=== PATIENT | female | born 1960 | race Caucasian/White ===

== ENCOUNTER 2016-07-15 10:38 | Inpatient (IN) | payer MEDICAID ==
[2016-07-15] MEDS ORDERED: MAGNESIUM HYDROXIDE 2,400 MG/10 ML CUP PO PRN (12:21)
[2016-07-15] MEDS ORDERED: ZIPRASIDONE 20 MG VIAL IM PRN (12:21)
[2016-07-15] MEDS ORDERED: MAG HYDROX/AL HYDROX/SIMETH 30 ML CUP PO PRN (12:21)
[2016-07-15 13:07] VITALS: BMI 19.1
[2016-07-15] MEDS ORDERED: NAPROXEN 250 MG TAB PO PRN (13:29)
[2016-07-15] MEDS ORDERED: GABAPENTIN 400 MG CAP PO SCH (16:00)
[2016-07-15] MEDS: PANTOPRAZOLE 40 MG TABLET PO SCH (21:33)
[2016-07-15] MEDS: traZODone HCL 50 MG TAB PO SCH (21:33)
[2016-07-16] MEDS: ARIPiprazole 2 MG TAB PO SCH (07:44)
[2016-07-16] MEDS: ASPIRIN 81 MG CHEW PO SCH (07:44)
[2016-07-16] MEDS: amLODIPine 10 MG TAB PO SCH (07:44)
[2016-07-16] MEDS: LORazepam 1 MG TAB PO PRN ×2 (07:45→20:49)
[2016-07-16] MEDS: LISINOPRIL 20 MG TAB PO SCH (07:45)
[2016-07-16] MEDS: ATORVASTATIN 10 MG TAB PO SCH (07:45)
[2016-07-16] MEDS: PANTOPRAZOLE 40 MG TABLET PO SCH ×2 (07:45→20:16)
[2016-07-16] MEDS: ACETAMINOPHEN TAB 325 MG TAB PO PRN ×3 (07:47→23:07)
[2016-07-16] MEDS ORDERED: VENLAFAXINE HCL ER 150 MG CAP PO SCH (09:00)
[2016-07-16] MEDS: GABAPENTIN 300 MG CAP PO SCH ×3 (10:15→20:16)
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
[2016-07-16] MEDS: oxyCODONE-APAP 5-325MG 1 EACH TAB PO PRN ×2 (12:51→18:29)
[2016-07-16] MEDS ORDERED: BACLOFEN 10 MG TAB PO PRN (13:40)
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
--- NOTE | 2016-07-16 17:49 | P.PN ---
Subjective SUBJECTIVE: Patient endorses :poor appetite ,feeling tired ,no motivation ,ruminating about her back pain and her migraine ,denies any suicidal ideation , endorses:high anxiety ,flashback ,poor memory ,hopeless and helpless feeling MENTAL STATUS EXAM: Patient is dressed up in her street clothing,less confused than yesterday ,less guarded ,no abnormal movement ,speech is non spontaneous ,tangential ,denies any psychotic features ,denies any suicidal or homicidal ideations ,her insight to her SA is impaired ASSESSMENT: Delirium reaction ,resolved ,Major depression,recurrent ,severe,PTSD PLAN:Increase Effexor to 225 mg ,continue rest of medications ,will arrange family meeting with for collateral information Objective - Vital Signs Vital signs: Vital Signs Temp 98.0 F 07/16/16 07:24 Pulse 89 07/16/16 08:33 Resp 16 07/16/16 08:33 BP 156/76 07/16/16 08:33 Pulse Ox Intake & Output 07/15/16 07/16/16 07/16/16 18:59 06:59 18:59 Weight 55.537 kg 55.537 kg
[2016-07-16] MEDS: traZODone HCL 50 MG TAB PO SCH (20:16)
[2016-07-17] MEDS: oxyCODONE-APAP 5-325MG 1 EACH TAB PO PRN ×4 (02:04→20:45)
[2016-07-17] MEDS: GABAPENTIN 300 MG CAP PO SCH (08:29)
[2016-07-17] MEDS: VENLAFAXINE HCL ER 75 MG CAP PO SCH (08:29)
[2016-07-17] MEDS: ASPIRIN 81 MG CHEW PO SCH (08:29)
[2016-07-17] MEDS: PANTOPRAZOLE 40 MG TABLET PO SCH ×2 (08:29→20:50)
[2016-07-17] MEDS: ATORVASTATIN 10 MG TAB PO SCH (08:29)
[2016-07-17] MEDS: amLODIPine 10 MG TAB PO SCH (08:29)
[2016-07-17] MEDS: LISINOPRIL 20 MG TAB PO SCH (08:29)
[2016-07-17] MEDS: ARIPiprazole 2 MG TAB PO SCH (08:29)
[2016-07-17] MEDS: LORazepam 1 MG TAB PO PRN (08:30)
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
[2016-07-17] MEDS: GABAPENTIN 400 MG CAP PO SCH ×2 (15:29→20:45)
[2016-07-17] MEDS: LORazepam 0.5 MG TAB PO PRN (15:29)
[2016-07-17] MEDS: traZODone HCL 50 MG TAB PO SCH (20:45)
[2016-07-18] MEDS: oxyCODONE-APAP 5-325MG 1 EACH TAB PO PRN ×4 (02:41→21:32)
[2016-07-18] MEDS: amLODIPine 10 MG TAB PO SCH (08:39)
[2016-07-18] MEDS: LISINOPRIL 20 MG TAB PO SCH (08:39)
[2016-07-18] MEDS: ATORVASTATIN 10 MG TAB PO SCH (08:39)
[2016-07-18] MEDS: ASPIRIN 81 MG CHEW PO SCH (08:39)
[2016-07-18] MEDS: GABAPENTIN 400 MG CAP PO SCH ×3 (08:39→21:29)
[2016-07-18] MEDS: ARIPiprazole 2 MG TAB PO SCH (08:39)
[2016-07-18] MEDS: PANTOPRAZOLE 40 MG TABLET PO SCH ×2 (08:40→21:29)
[2016-07-18] MEDS: VENLAFAXINE HCL ER 75 MG CAP PO SCH (08:41)
[2016-07-18] MEDS: LORazepam 0.5 MG TAB PO PRN ×2 (08:42→15:55)
--- NOTE | 2016-07-18 11:11 | P.PN ---
Progress Note - Text Interval history: Patient is seen in cross coverage today for Dr. Easley. She reports that she is feeling better. She states she overall has been sleeping well, not as good last night. She is eating some. She does not seem to voice any adverse psychotropic medication side effects. She does relate that the Ativan is not as effective at 0.5 mg. Mental status exam: She is alert and cooperative with the interview. Her affect does show some range. Her mood she describes is improved. She denies any thoughts of harm to self or others. There is no evidence of active psychosis. She denies any hallucinations or paranoid thoughts. There is no agitation currently. Plan: We'll maintain Effexor XR and Abilify as current. Patient requests a nicotine patch, smokes 1-1-1/2 packs per day. We'll start Habitrol patch 21 mg daily. Continue to cover this patient for Dr. Easley through the weekend.
[2016-07-18] MEDS: NICOTINE 21MG/24HR PATCH TRANSDERM SCH (13:38)
[2016-07-18] MEDS: ACETAMINOPHEN TAB 325 MG TAB PO PRN (18:49)
[2016-07-18] MEDS: traZODone HCL 50 MG TAB PO SCH (21:29)
[2016-07-19] MEDS: oxyCODONE-APAP 5-325MG 1 EACH TAB PO PRN ×4 (04:31→22:48)
[2016-07-19] MEDS: ARIPiprazole 2 MG TAB PO SCH (08:43)
[2016-07-19] MEDS: amLODIPine 10 MG TAB PO SCH (08:43)
[2016-07-19] MEDS: ASPIRIN 81 MG CHEW PO SCH (08:43)
[2016-07-19] MEDS: ACETAMINOPHEN TAB 325 MG TAB PO PRN ×2 (08:43→13:25)
[2016-07-19] MEDS: ATORVASTATIN 10 MG TAB PO SCH (08:44)
[2016-07-19] MEDS: NICOTINE 21MG/24HR PATCH TRANSDERM SCH (08:44)
[2016-07-19] MEDS: VENLAFAXINE HCL ER 75 MG CAP PO SCH (08:44)
[2016-07-19] MEDS: LISINOPRIL 20 MG TAB PO SCH (08:44)
[2016-07-19] MEDS: PANTOPRAZOLE 40 MG TABLET PO SCH ×2 (08:44→20:07)
[2016-07-19] MEDS: GABAPENTIN 400 MG CAP PO SCH ×3 (08:44→20:07)
[2016-07-19 08:48] VITALS: RESP 18
--- NOTE | 2016-07-19 15:15 | P.PN ---
Progress Note - Text Interval history: Patient is seen in cross coverage today for Dr. Easley. She reports that she is feeling better. She does state that it took her time to fall asleep last night. She says she is eating well. She does not seem to voice any adverse psychotropic medication side effects. She has a family meeting scheduled for tomorrow she reports. Mental status exam: She is alert and cooperative with the interview. Her speech is fluent, not rapid or pressured. Her affect does show range. Her mood is improved. She denies any thoughts of harm to self or others. She denies any hallucinations. She does not make any catrachito delusional statements. She does not show any agitation. Plan: We'll maintain current psychotropic medications. Dr. Easley to resume care this patient starting tomorrow.
[2016-07-19] MEDS: LORazepam 0.5 MG TAB PO PRN (15:54)
[2016-07-19] MEDS: traZODone HCL 50 MG TAB PO SCH (20:07)
[2016-07-20] MEDS: LORazepam 0.5 MG TAB PO PRN ×2 (03:14→12:09)
[2016-07-20] MEDS: ACETAMINOPHEN TAB 325 MG TAB PO PRN ×2 (03:14→08:51)
[2016-07-20 04:25] VITALS: TEMP 97.6
[2016-07-20] MEDS: oxyCODONE-APAP 5-325MG 1 EACH TAB PO PRN ×2 (05:00→10:32)
[2016-07-20] MEDS: ARIPiprazole 2 MG TAB PO SCH (08:50)
[2016-07-20] MEDS: NICOTINE 21MG/24HR PATCH TRANSDERM SCH (08:50)
[2016-07-20] MEDS: amLODIPine 10 MG TAB PO SCH (08:50)
[2016-07-20] MEDS: ASPIRIN 81 MG CHEW PO SCH (08:50)
[2016-07-20] MEDS: ATORVASTATIN 10 MG TAB PO SCH (08:51)
[2016-07-20] MEDS: LISINOPRIL 20 MG TAB PO SCH (08:51)
[2016-07-20] MEDS: GABAPENTIN 400 MG CAP PO SCH (08:51)
[2016-07-20] MEDS: VENLAFAXINE HCL ER 75 MG CAP PO SCH (08:53)
[2016-07-20] MEDS: PANTOPRAZOLE 40 MG TABLET PO SCH (08:54)
[2016-07-20 12:10] VITALS: BP 145/66; PULSE 69
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
== END 2016-07-20 14:13 | disposition home or self-care (01) | DRG 880 ==
LOC: 3MHU 11:43
PROVIDERS: ADMIT Psychiatry & Neurology Psychiatry; ATTEND Psychiatry & Neurology Psychiatry
DX: F05 Delirium due to known physiological condition (principal); F33.2 Major depressive disorder, recurrent severe without psychotic features; G62.9 Polyneuropathy, unspecified; I65.23 Occlusion and stenosis of bilateral carotid arteries; I10 Essential (primary) hypertension; F44.4 Conversion disorder with motor symptom or deficit; J44.9 Chronic obstructive pulmonary disease, unspecified; F43.10 Post-traumatic stress disorder, unspecified; G89.4 Chronic pain syndrome; K58.9 Irritable bowel syndrome, unspecified; E78.5 Hyperlipidemia, unspecified; K21.9 Gastro-esophageal reflux disease without esophagitis; G43.909 Migraine, unspecified, not intractable, without status migrainosus; Z91.5 Personal history of self-harm; F17.200 Nicotine dependence, unspecified, uncomplicated; F11.21 Opioid dependence, in remission; M54.9 Dorsalgia, unspecified; Z90.710 Acquired absence of both cervix and uterus; Z90.49 Acquired absence of other specified parts of digestive tract; Z59.9 Problem related to housing and economic circumstances, unspecified; Z91.410 Personal history of adult physical and sexual abuse; Z91.411 Personal history of adult psychological abuse; Z91.83 Wandering in diseases classified elsewhere; Z81.8 Family history of other mental and behavioral disorders; Z79.82 Long term (current) use of aspirin; Z79.1 Long term (current) use of non-steroidal anti-inflammatories (NSAID); Z79.899 Other long term (current) drug therapy

== ENCOUNTER 2018-02-15 09:39 | Inpatient (IN) | payer OTHER ==
--- NOTE | 2018-02-15 10:02 | ED ---
General Adult HPI - General Chief complaint: Extremity Problem,Nontraumatic Stated complaint: cough/rib pain Time Seen by Provider: 02/15/18 09:52 Source: patient, RN notes reviewed Mode of arrival: ambulatory Limitations: no limitations - History of Present Illness Initial comments: This is a 57-year-old female presents emergency Department chief complaint of cough, left-sided rib pain. Patient states that she was released last from [facility] for pneumonia. She states that she's not one week in the hospital. She states she still has a slight cough. She did admit that she came home and had a mechanical fall striking the left side of her ribs. She has mild discomfort. Patient does have underlying COPD, continues to smoke. Patient denies any head injury no loss conscious denies any neck or back pain. - Related Data Home Medications Medication Instructions Recorded Confirmed Aspirin EC [Ecotrin Low Dose] 81 mg PO DAILY 07/15/16 02/15/18 Lisinopril [Zestril] 20 mg PO DAILY 07/15/16 02/15/18 Naproxen 500 mg PO BID PRN 07/15/16 02/15/18 Venlafaxine HCl [Effexor XR] 225 mg pe PO DAILY 07/15/16 02/15/18 amLODIPine [Norvasc] 10 mg PO DAILY 07/15/16 02/15/18 traZODone HCL 150 mg PO HS 07/15/16 02/15/18 Albuterol Inhaler [Ventolin Hfa 1 - 2 puff INHALATION RT-Q6H PRN 02/15/18 Inhaler] Atenolol [Tenormin] 25 mg PO BID 02/15/18 02/15/18 Atorvastatin [Lipitor] 20 mg PO HS 02/15/18 02/15/18 Cetirizine HCl [Zyrtec] 10 mg PO DAILY 02/15/18 02/15/18 Clopidogrel Bisulfate [Plavix] 75 mg PO DAILY 02/15/18 02/15/18 Ergocalciferol [Vitamin D2] 50,000 unit PO TU 02/15/18 02/15/18 Magnesium Oxide [Mag-Ox] 400 mg PO DAILY 02/15/18 02/15/18 Allergies Allergy/AdvReac Type Severity Reaction Status Date / Time ketorolac [From Toradol] Allergy Unknown Verified 02/15/18 09:55 sulfadiazine Allergy Unknown Verified 02/15/18 09:55 mesalamine [From Asacol] AdvReac Swelling Verified 02/15/18 09:55 Review of Systems ROS Statement: Those systems with pertinent positive or pertinent negative responses have been documented in the HPI. ROS Other: All systems not noted in ROS Statement are negative. Past Medical History Past Medical History: GERD/Reflux, Hyperlipidemia, Hypertension, Pneumonia Additional Past Medical History / Comment(s): Neuropathy, migraine headaches, chronic back pain, unspecified movement disorder History of Any Multi-Drug Resistant Organisms: None Reported Past Surgical History: Section, Heart Catheterization With Stent, Hysterectomy Additional Past Surgical History / Comment(s): 2 C-sections, partial hysterectomy, salpingo-oophorectomy, exploratory laparotomies for infertility. Stent placed 12/31/17 Past Psychological History: Anxiety, Depression, PTSD Smoking Status: Current every day smoker Past Alcohol Use History: None Reported Past Drug Use History: None Reported General Exam Limitations: no limitations General appearance: alert, in no apparent distress Head exam: Present: atraumatic, normocephalic, normal inspection Neck exam: Present: normal inspection, full ROM. Absent: tenderness, meningismus, lymphadenopathy Respiratory exam: Present: normal lung sounds bilaterally, chest wall tenderness (Moderate left lateral posterior). Absent: respiratory distress, wheezes, rales, rhonchi, stridor Cardiovascular Exam: Present: regular rate, normal rhythm, normal heart sounds. Absent: systolic murmur, diastolic murmur, rubs, gallop, clicks Back exam: Absent: CVA tenderness (R), CVA tenderness (L) Skin exam: Present: warm, dry, intact, normal color. Absent: rash Course Vital Signs 02/15/18 09:44 Temperature 98.3 F Pulse Rate 79 Respiratory 18 Rate Blood Pressure 109/69 O2 Sat by Pulse 96 Oximetry EKG Findings - EKG Comments: EKG Findings:: EKG performed at 10:49 normal sinus rhythm with a rate of 73 AK 182 QRS 88 QT/QTc 444/489 Medical Decision Making - Lab Data Result diagrams: 02/15/18 11:00 02/15/18 11:00 Lab Results 02/15/18 02/15/18 02/15/18 Range/Units 11:00 11:00 11:00 WBC 17.7 H (3.8-10.6) k/uL RBC 3.09 L (3.80-5.40) m/uL Hgb 9.0 L (11.4-16.0) gm/dL Hct 29.1 L (34.0-46.0) % MCV 94.3 (80.0-100.0) fL MCH 29.3 (25.0-35.0) pg MCHC 31.0 (31.0-37.0) g/dL RDW 16.9 H (11.5-15.5) % Plt Count 659 H (150-450) k/uL Neutrophils % 87 % Lymphocytes % 6 % Monocytes % 5 % Eosinophils % 1 % Basophils % 0 % Neutrophils # 15.5 H (1.3-7.7) k/uL Lymphocytes # 1.0 (1.0-4.8) k/uL Monocytes # 0.8 (0-1.0) k/uL Eosinophils # 0.1 (0-0.7) k/uL Basophils # 0.0 (0-0.2) k/uL Hypochromasia Moderate Anisocytosis Slight PT 10.9 (9.0-12.0) sec INR 1.1 (<1.2) APTT 25.0 (22.0-30.0) sec Sodium 137 (137-145) mmol/L Potassium 4.0 (3.5-5.1) mmol/L Chloride 103 (98-107) mmol/L Carbon Dioxide 24 (22-30) mmol/L Anion Gap 10 mmol/L BUN 11 (7-17) mg/dL Creatinine 0.40 L (0.52-1.04) mg/dL Est GFR (CKD-EPI)AfAm >90 (>60 ml/min/1.73 sqM) Est GFR (CKD-EPI)NonAf >90 (>60 ml/min/1.73 sqM) Glucose 112 H (74-99) mg/dL Plasma Lactic Acid Kraig (0.7-2.0) mmol/L Calcium 8.9 (8.4-10.2) mg/dL Total Bilirubin 0.4 (0.2-1.3) mg/dL AST 23 (14-36) U/L ALT 19 (9-52) U/L Alkaline Phosphatase 104 (38-126) U/L Troponin I (0.000-0.034) ng/mL Total Protein 6.3 (6.3-8.2) g/dL Albumin 2.8 L (3.5-5.0) g/dL 02/15/18 02/15/18 Range/Units 11:00 11:00 WBC (3.8-10.6) k/uL RBC (3.80-5.40) m/uL Hgb (11.4-16.0) gm/dL Hct (34.0-46.0) % MCV (80.0-100.0) fL MCH (25.0-35.0) pg MCHC (31.0-37.0) g/dL RDW (11.5-15.5) % Plt Count (150-450) k/uL Neutrophils % % Lymphocytes % % Monocytes % % Eosinophils % % Basophils % % Neutrophils # (1.3-7.7) k/uL Lymphocytes # (1.0-4.8) k/uL Monocytes # (0-1.0) k/uL Eosinophils # (0-0.7) k/uL Basophils # (0-0.2) k/uL Hypochromasia Anisocytosis PT (9.0-12.0) sec INR (<1.2) APTT (22.0-30.0) sec Sodium (137-145) mmol/L Potassium (3.5-5.1) mmol/L Chloride (98-107) mmol/L Carbon Dioxide (22-30) mmol/L Anion Gap mmol/L BUN (7-17) mg/dL Creatinine (0.52-1.04) mg/dL Est GFR (CKD-EPI)AfAm (>60 ml/min/1.73 sqM) Est GFR (CKD-EPI)NonAf (>60 ml/min/1.73 sqM) Glucose (74-99) mg/dL Plasma Lactic Acid Kraig 1.4 (0.7-2.0) mmol/L Calcium (8.4-10.2) mg/dL Total Bilirubin (0.2-1.3) mg/dL AST (14-36) U/L ALT (9-52) U/L Alkaline Phosphatase (38-126) U/L Troponin I <0.012 (0.000-0.034) ng/mL Total Protein (6.3-8.2) g/dL Albumin (3.5-5.0) g/dL Disposition Clinical Impression: Pneumonia, Anemia, Lymphadenopathy, mediastinal Disposition: ADMITTED IP TO THIS HOSP Condition: Fair Referrals: Clayton Yang MD [Primary Care Provider] - 1-2 days
--- NOTE | 2018-02-15 10:44 | XR ---
EXAMINATION TYPE: PA chest and left rib series (5 views) DATE OF EXAM: 02/15/2018 Comparison: None Clinical History: 57-year-old female with left-sided rib pain from fall, Pain Findings: Focal opacity at the left base extending up to the mid lung level. Mild left apical pleural parenchym al scarring. Right lung and pleural space appear clear. No displaced left rib fracture or discrete ri b erosions are seen. Heart normal size. Impression: Focal opacity at the left base extending up to the midlung level. Findings may represent a moderate-s ized pleural effusion. Underlying atelectasis, consolidation, or mass are also possible. No displaced left rib fracture seen.
[2018-02-15] MEDS ORDERED: HYDROcodone/APAP 5-325MG 1 EACH TAB PO STA (11:14)
[2018-02-15 11:19] LABS: Anisocytosis Slight; Basophils % (A) 0 %; Eosinophils # (A) 0.1 k/uL (0-0.7); Eosinophils % (A) 1 %; HCT 29.1 % (34.0-46.0); Hypochromasia Moderate; Lymphocytes % (A) 6 %; MCH 29.3 pg (25.0-35.0); MCV 94.3 fL (80.0-100.0); Mean Platelet Volume 6.9; Monocytes # (A) 0.8 k/uL (0-1.0); Monocytes % (A) 5 %; Neutrophils # (A) 15.5 k/uL (1.3-7.7); Neutrophils % (A) 87 %; Platelet Count 659 k/uL (150-450); RBC 3.09 m/uL (3.80-5.40); RDW 16.9 % (11.5-15.5); WBC 17.7 k/uL (3.8-10.6)
[2018-02-15 11:26] LABS: INR 1.1 (<1.2); Prothrombin Time 10.9 sec (9.0-12.0)
[2018-02-15 11:30] LABS: ALT 19 U/L (9-52); AST 23 U/L (14-36); Albumin 2.8 g/dL (3.5-5.0); Alkaline Phosphatase 104 U/L (38-126); Anion Gap 10 mmol/L; Blood Urea Nitrogen 11 mg/dL (7-17); Calcium 8.9 mg/dL (8.4-10.2); Carbon Dioxide 24 mmol/L (22-30); Chloride 103 mmol/L (98-107); Glucose 112 mg/dL (74-99); Sodium 137 mmol/L (137-145); Total Bilirubin 0.4 mg/dL (0.2-1.3); Total Protein 6.3 g/dL (6.3-8.2)
--- NOTE | 2018-02-15 12:22 | CT ---
CT CHEST FOR PULMONARY EMBOLISM. EXAMINATION TYPE: CT chest angio for PE DATE OF EXAM: 02/15/2018 INDICATION: SOB CT DLP: 330 mGycm, Automated exposure control for dose reduction was used. CONTRAST: Patient injected with 100 mL of Isovue 370. COMPARISON: None TECHNIQUE: CT of the chest is performed on a spiral scan at 2 mm thick sections. Study is performed with intravenous contrast timed for evaluation for pulmonary embolism. This will limit additional po rtions of the evaluation. 3-D MIP images reconstructed by the technologist are reviewed on the compu ter in the coronal and sagittal planes. FINDINGS: No persistent filling defects are evident to suggest an acute pulmonary embolism. There may be a 1.3 cm aortopulmonic window lymph node medial aspect. There is an enlarged lymph node at the level of the aortic arch measuring 1.3 cm. Smaller pretracheal lymph nodes are present. The a scending aorta diameter at the level of the main pulmonary artery is 4.2 cm. The main pulmonary keon ry diameter at the bifurcation is 3.0 cm. There is a large consolidation in the right lower lobe. This may be atelectasis or pneumonia. Moderat e size pleural effusion is present. Underlying masses are not excluded. There is a triangular area of fluid at the left apex. Limited CT section through the upper abdomen are unremarkable. Portion of the thyroid visualized is n ormal. IMPRESSIONS: 1. No acute pulmonary embolism. 2. Ascending thoracic aortic aneurysm of 4.2 cm. 3. Moderate left pleural effusion. 4. Consolidation left lower lobe. Atelectasis and pneumonia could be considered. Underlying mass may not be visualized within this consolidation. Follow-up to clearing is recommended. 5. Enlarged mediastinal adenopathy should be considered suspicious. Follow-up PET/CT is recommended.
[2018-02-15] MEDS ORDERED: LEVOFLOXACIN 750MG-D5W PMX 750 MG in DEXTROSE/WATER 1 150ML.BAG IVPB STA (12:38)
[2018-02-15] MEDS ORDERED: PIPERACILLIN-TAZOBACTAM 3.375 GM in DEXTROSE/WATER 1 50ML.BAG IVPB STA (12:38)
[2018-02-15] MEDS ORDERED: PNEUMONIA PROTOCOL UTILIZED 1 EACH MISC PO PRN (12:38)
[2018-02-15] MEDS ORDERED: IPRATROPIUM-ALBUTEROL 3 ML NEB INHALATION PRN (12:38)
--- NOTE | 2018-02-15 14:35 | US ---
EXAMINATION TYPE: US chest DATE OF EXAM: 02/15/2018 COMPARISON: NONE CLINICAL HISTORY: Left pleural effusion. TECHNIQUE: Targeted ultrasound of the posterior lower left hemithorax EXAM MEASUREMENTS: Left Pleural Effusion pocket size: 5.6 cm Left skin surface to fluid distance: 2.7 cm Highly septated pocket of fluid with lung prominent within at 4cm depth. Pulmonologists are able to review the images in the patient?s EMR. On the left posterior chest was marked for possible thoracentesis. IMPRESSIONS: 1. Loculated left pleural effusion
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
[2018-02-15] MEDS: SYMBICORT 160-4.5 MCG INHALER INHALATION SCH (18:58)
--- NOTE | 2018-02-15 21:23 | HP ---
HISTORY AND PHYSICAL DATE OF SERVICE: 02/15/2018. PRESENTING COMPLAINT: Short of breath. HISTORY OF PRESENTING COMPLAINT: This is a pleasant 57-year-old patient who follows with Dr. Yang. The patient was just discharged from [facility] following a diagnosis of pneumonia, had been on ventilator for 2 days. The patient was discharged on February 10, 2018. The patient presents with worsening cough, yellow sputum production, on the left side with low-grade fever, short of breath, tired, run down. The patient has lost quite a bit of weight in this episode. CT scan in the ER showed left fluid loculation with possible parapneumonic effusion which was confirmed on ultrasound. The patient's chronic stable medical conditions include GERD, hypertension, hyperlipidemia, some left-sided weakness from prior stroke and irritable bowel syndrome and peripheral neuropathy, chronic low back pain. REVIEW OF SYSTEMS: CONSTITUTIONAL: Loss of appetite, weight loss. HEENT none. RESPIRATORY: As above. CARDIOVASCULAR none. GASTROINTESTINAL heartburn. GENITOURINARY none. MUSCULOSKELETAL: Chronic low back pain. DERMATOLOGICAL, HEMATOLOGIC, LYMPHATICS: none. PSYCHIATRY none. NEUROLOGICAL: Numbness and tingling in hands and feet. PAST MEDICAL HISTORY: GERD, hypertension, hyperlipidemia, stroke with some left-sided weakness and irritable bowel syndrome, peripheral neuropathy, back pain. PAST SURGICAL HISTORY: Appendectomy, , cholecystectomy hysterectomy, percutaneous procedure to remove clot from the brain done at [facility] on December 31, 2017, right carotid stent placed percutaneously, bilateral salpingo-oophorectomy, exploratory laparotomy, , , partial hysterectomy. PSYCH HISTORY: Anxiety, depression and PTSD. SOCIAL HISTORY: . The patient has been smoking been up to 2 packs a day for close to 40 years. The patient is doing [place] pills close to 30-40 pills a day. 7.5 mg strength. She is doing this from her . The patient used to work as a nurse few years ago. FAMILY HISTORY: Father of strokes in his 80s. HOME MEDICATIONS: 1. Ventolin HFA 1 or 2 puffs q.6h p.r.n. 2. Magnesium oxide 400 mg p.o. daily. 3. Zyrtec 10 mg p.o. daily. 4. Vitamin D2 20831 units p.o. on Wednesday. 5. Lipitor 20 mg at bedtime. 6. Tenormin 25 mg p.o. b.i.d. 7. Norvasc 10 mg p.o. daily. 8. Plavix 75 mg p.o. daily. 9. Aspirin 81 mg p.o. daily. 10.Trazodone 150 mg p.o. q.h.s. 11.Effexor XR 225 mg p.o. daily. 12.Naproxen 500 mg p.o. b.i.d. p.r.n. 13.Zestril 20 mg p.o. daily. ALLERGIES: TO KETOROLAC, SULFADIAZINE, MESALAMINE. EXAMINATION: VITAL SIGNS: Temperature 98.3, pulse 79, respiration 18, blood pressure 109/69, pulse ox 96 percent on room air. GENERAL APPEARANCE: Thin built, BMI 20.4 lying in bed, tired appearing. EYES: Pupil equal. Conjunctivae pale. HEENT: External appearance of nose and ears normal. Oral cavity normal. NECK JVD not raised. Mass not palpable. RESPIRATORY: Effort increased. LUNGS: Diminished breath sounds. Splinting on the left side and some bronchial breathing. CARDIOVASCULAR: 1st and 2nd sounds normal. No edema. ABDOMEN: Soft, nontender. Liver and spleen not palpable. LYMPHATIC: No lymph nodes palpable in the neck and axillae. PSYCHIATRY: Alert and oriented x3. Mood and affect anxious-appearing. NEUROLOGICAL: Pupils equal. Cranial nerves grossly intact. Power and sensation grossly intact. INVESTIGATIONS: White count 7.7, hemoglobin 9, platelets 659, potassium 4, BUN 11, creatinine 0.4, albumin 2.8. Chest x-ray film interpreted by me shows loculation pleural effusion on the left side. Chest CTA shows consolidation, possible pleural fluid. Chest ultrasound shows possible left parapneumonic effusion. EKG film interpreted by ut shows normal sinus rhythm. ASSESSMENT: 1. Probable parapneumonic effusion in a patient who was just treated at the other facility, discharged 5 days ago secondary to pneumonia, seems to have a parapneumonic effusion. The patient may need surgical drainage of the same. An underlying mass cannot be ruled out. 2. Chronic obstructive pulmonary disease in a current smoker. 3. Chronic nicotine dependence, patient is a cigarette smoker. 4. Gastroesophageal reflux disease. 5. Essential hypertension. 6. Hyperlipidemia. 7. Irritable bowel syndrome. 8. Peripheral neuropathy idiopathic. 9. Chronic low back pain. 10.Normocytic anemia multifactorial including nutritional. 11.Reactive thrombocytosis. PLAN: Pulmonary was consulted, who in turn consulted Cardiothoracic surgery. The patient was put on bronchodilators, IV Zosyn and Levaquin. Other home medications resumed. We will have a dietitian also see the patient. The patient given Lovenox for DVT prophylaxis. The patient is counseled against use of smoking and the fact that she is making her pulmonary condition worse. Will give the nicotine patch. More than 3 minutes was spent on this aspect of the case. Copy to Dr. Yang. JIM / ANTHONYN: [id number] /
[2018-02-15] MEDS: ATENOLOL 25 MG TAB PO SCH (21:53)
[2018-02-15] MEDS: ATORVASTATIN 20 MG TAB PO SCH (21:53)
[2018-02-15] MEDS: NICOTINE 21MG/24HR PATCH TRANSDERM SCH (21:53)
[2018-02-15] MEDS ORDERED: KETOROLAC 30 MG/ML 1 ML VIAL IVP PRN (22:56)
[2018-02-15] MEDS: IPRATROPIUM-ALBUTEROL 3 ML NEB INHALATION SCH ×2 (23:00→23:48)
[2018-02-15] MEDS: ACETAMINOPHEN TAB 325 MG TAB PO PRN (23:54)
[2018-02-15] MEDS: PIPERACILLIN-TAZOBACTAM 3.375 GM in DEXTROSE/WATER 1 50ML.BAG IVPB SCH (23:55)
[2018-02-16] MEDS: IPRATROPIUM-ALBUTEROL 3 ML NEB INHALATION SCH ×6 (03:46→23:16)
[2018-02-16] MEDS: SYMBICORT 160-4.5 MCG INHALER INHALATION SCH ×2 (08:11→18:54)
--- NOTE | 2018-02-16 08:17 | P.PN ---
Subjective Progress Note Date: 02/16/18 Principal diagnosis: Left-sided loculated pleural effusion. Previous medical history of COPD, 2 pack per day tobacco abuse, opioid abuse, CVA 2 this year with continued left- sided deficit, right carotid stent at [facility] on 01/01/2028, subsequent pneumonia/septic shock and respiratory failure with prolonged mechanical ventilation, hypertension, hyperlipidemia, irritable bowel syndrome, chronic low back pain, and depression. The patient is currently sitting up in bed in no acute distress. Does state that she has significant left lateral wall chest pain which is not relieved with current medication regimen. Hemodynamically stable, no new complaints. Objective - Vital Signs Vital signs: Vital Signs Temp 97.4 F L 02/16/18 07:32 Pulse 81 02/16/18 07:32 Resp 19 02/16/18 07:32 BP 148/82 02/16/18 07:32 Pulse Ox 96 02/16/18 07:32 Intake & Output 02/15/18 02/16/18 02/16/18 18:59 06:59 18:59 Intake Total 410 Balance 410 Weight 58.967 kg 58.967 kg Intake: Intake, IV Titration 50 Amount Piperacillin-Tazobactam 3 50 .375 gm In Dextrose/Water 1 50ml.bag @ 12.5 mls/hr IVPB ONCE STA Rx#: [id number] Oral 360 Other: Voiding Method Incontinent # Voids 4 - Constitutional General appearance: Present: cooperative, no acute distress, thin - Respiratory Details: Lungs sounds diminished bilaterally, left greater than right. Respirations even , nonlabored. Currently on room air with oxygen saturation 93%. - Cardiovascular Details: S1, S2 present. Regular rate and rhythm. Palpable peripheral pulses bilaterally. No edema present. No calf pain or tenderness noted. - Gastrointestinal Gastrointestinal Comment(s): Abdomen soft, nontender, nondistended. Active bowel sounds 4 quadrants. Tolerating diet. - Genitourinary Genitourinary Comment(s): Continues to void clear, yellow urine. - Integumentary Integumentary Comment(s): Skin is warm and dry with evidence of good perfusion. - Neurologic Neurologic: Present: CNII-XII intact - Musculoskeletal Musculoskeletal: Present: gait normal, strength equal bilaterally - Psychiatric Psychiatric: Present: A&O x's 3, appropriate affect, intact judgment & insight - Allied health notes Allied health notes reviewed: nursing - Labs CBC & Chem 7: 02/15/18 11:00 02/15/18 11:00 Labs: Abnormal Lab Results - Last 24 Hours (Table) 02/15/18 02/15/18 Range/Units 11:00 11:00 WBC 17.7 H (3.8-10.6) k/uL RBC 3.09 L (3.80-5.40) m/uL Hgb 9.0 L (11.4-16.0) gm/dL Hct 29.1 L (34.0-46.0) % RDW 16.9 H (11.5-15.5) % Plt Count 659 H (150-450) k/uL Neutrophils # 15.5 H (1.3-7.7) k/uL Creatinine 0.40 L (0.52-1.04) mg/dL Glucose 112 H (74-99) mg/dL Albumin 2.8 L (3.5-5.0) g/dL - Imaging and Cardiology Chest x-ray: image reviewed Assessment and Plan (1) Hypertension Current Visit: Yes Status: Chronic Code(s): I10 - ESSENTIAL (PRIMARY) HYPERTENSION SNOMED Code(s): 63558792 (2) Hyperlipidemia Current Visit: Yes Status: Chronic Code(s): E78.5 - HYPERLIPIDEMIA, UNSPECIFIED SNOMED Code(s): 03195463 (3) Irritable bowel syndrome Current Visit: Yes Status: Chronic Code(s): K58.9 - IRRITABLE BOWEL SYNDROME WITHOUT DIARRHEA SNOMED Code(s): 90040071 (4) Chronic low back pain Current Visit: Yes Status: Chronic Code(s): M54.5 - LOW BACK PAIN; G89.29 - OTHER CHRONIC PAIN SNOMED Code(s): 323279211 (5) Tobacco abuse Current Visit: Yes Status: Chronic Code(s): Z72.0 - TOBACCO USE SNOMED Code(s): 474117397 (6) History of septic shock Current Visit: No Status: Resolved Code(s): Z86.19 - PERSONAL HISTORY OF OTHER INFECTIOUS AND PARASITIC DISEASES SNOMED Code(s): 430920113 (7) History of respiratory failure Current Visit: No Status: Resolved Code(s): Z87.09 - PERSONAL HISTORY OF OTHER DISEASES OF THE RESPIRATORY SYSTEM SNOMED Code(s): 059081402 (8) Depression Current Visit: Yes Status: Chronic Code(s): F32.9 - MAJOR DEPRESSIVE DISORDER, SINGLE EPISODE, UNSPECIFIED SNOMED Code(s): 67180173 (9) History of stroke with residual deficit Current Visit: Yes Status: Chronic Code(s): I69.30 - UNSPECIFIED SEQUELAE OF CEREBRAL INFARCTION SNOMED Code(s): 801345652 (10) Fall Current Visit: Yes Status: Acute Code(s): W19.XXXA - UNSPECIFIED FALL, INITIAL ENCOUNTER SNOMED Code(s): 6145149 (11) Anemia Current Visit: Yes Status: Chronic Code(s): D64.9 - ANEMIA, UNSPECIFIED SNOMED Code(s): 897845383 (12) Pneumonia Current Visit: Yes Status: Acute Code(s): J18.9 - PNEUMONIA, UNSPECIFIED ORGANISM SNOMED Code(s): 047422230 (13) Hx of opioid abuse Current Visit: Yes Status: Chronic Code(s): Z87.898 - PERSONAL HISTORY OF OTHER SPECIFIED CONDITIONS SNOMED Code(s): 595272716 (14) COPD (chronic obstructive pulmonary disease) Current Visit: Yes Status: Chronic Code(s): J44.9 - CHRONIC OBSTRUCTIVE PULMONARY DISEASE, UNSPECIFIED SNOMED Code(s): 28103644 (15) Loculated pleural effusion Current Visit: Yes Status: Acute Code(s): J90 - PLEURAL EFFUSION, NOT ELSEWHERE CLASSIFIED SNOMED Code(s): 170388552 Plan: 1. No surgical intervention at this time as patient is on Plavix and is very high risk for significant bleeding with decortication. 2. Recommend lateral/basal pigtail catheter placement by interventional radiology with lytic therapy. 3. Pain control per Dr. Domingo. 4. Incentive spirometer ordered, encourage use 10 times every hour. 5. Continue IV antibiotics per Dr. Domingo/Dr. Eddy. 6. Medical management per primary, pulmonology. 7. We will instill lytic therapy if pigtail catheter is placed. Time with Patient: Greater than 30
[2018-02-16] MEDS: PIPERACILLIN-TAZOBACTAM 3.375 GM in DEXTROSE/WATER 1 50ML.BAG IVPB SCH ×2 (08:58→18:01)
[2018-02-16] MEDS: NICOTINE 21MG/24HR PATCH TRANSDERM SCH (08:58)
[2018-02-16] MEDS: ASPIRIN 81 MG PO SCH (09:03)
[2018-02-16] MEDS: CLOPIDOGREL 75 MG TAB PO SCH (09:03)
[2018-02-16] MEDS: ATENOLOL 25 MG TAB PO SCH ×2 (09:03→22:16)
[2018-02-16] MEDS: amLODIPine 10 MG TAB PO SCH (09:03)
[2018-02-16] MEDS: LORATADINE 10 MG TAB PO SCH (09:03)
[2018-02-16] MEDS: ACETAMINOPHEN TAB 325 MG TAB PO PRN ×2 (09:08→16:42)
--- NOTE | 2018-02-16 09:47 | XR ---
EXAMINATION TYPE: XR chest 2V DATE OF EXAM: 02/16/2018 COMPARISON: 02/15/2018 INDICATION: Pneumonia TECHNIQUE: Frontal and lateral views of the chest are obtained. FINDINGS: The heart size is normal. The pulmonary vasculature is normal. Moderate left pleural effusion is present. Infiltrate is adjacent to the effusion. Findings are stabl e. Left apical thickening remains present. Right lung appears clear. IMPRESSION: 1. Stable moderate left pleural effusion with adjacent infiltrate. Continued follow-up is recommended
[2018-02-16 10:02] VITALS: BMI 20.3
--- NOTE | 2018-02-16 11:20 | P.PN ---
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 Patient underwent stent placement supposedly in the middle cerebral artery, and she was treated for pneumonia while inpatient. Antibiotics at the time included Unasyn and I believe Zosyn initially she was treated with clindamycin. Her problems included opiate overdose, acute metabolic encephalopathy, septic shock secondary to pneumonia, hypertension, electrolytes imbalance, patient was on mechanical ventilation for quite some time, and she was eventually discharged home on February 09. A few days ago, the patient supposedly fell at home, and she landed on the left side of her chest. Has been complaining of significant pain on the left side of the chest, presented to our ER today complaining of chest pain. No cough no wheezing no fever no chills no hemoptysis and her chest x-ray showed pleural effusion with left lower lobe atelectasis. CT of the chest showed loculated pleural effusion , this was confirmed by ultrasound and there was clearly multiple areas of septation noted on the ultrasound of the chest. Considering the findings on the CT of the chest and ultrasound, I was asked to see the patient on consultation. Presently the patient seems to have fully recovered from her CVA with residual minimal left-sided weakness. Denies any headache, no blurred vision, no dizziness, no dysphagia, no dysarthria, she has some chest pain, she has underlying COPD, chronic cough, again no fever no chills no hemoptysis. No nausea no vomiting no abdominal pain no melena no hematemesis no dysuria frequency no urgency. Patient is maintained on multiple meds at home including Plavix, lisinopril, aspirin 81 mg daily, she is also supposedly on nicotine patches and on trazodone as well as Ultram and thiamine. The patient is seen again today 02/16/2018 in follow-up on the regular medical floor. She is awake and alert in no acute distress. She is still having ongoing discomfort in the left chest area. She is maintaining good O2 saturations in the 90s on room air. She's been afebrile. Hemodynamically stable. She had been seen and evaluated by cardiothoracic surgeons who do not feel surgical intervention would be safe based on her current need for Plavix with increased risk of bleeding with decortication. They're recommending a pigtail catheter for lytic therapy to be inserted per interventional radiology. Objective - Vital Signs Vital signs: Vital Signs Temp 97.4 F L 02/16/18 07:32 Pulse 81 02/16/18 10:39 Resp 19 02/16/18 10:39 BP 148/82 02/16/18 07:32 Pulse Ox 96 02/16/18 07:32 Intake & Output 02/15/18 02/16/18 02/16/18 18:59 06:59 18:59 Intake Total 410 Balance 410 Weight 58.967 kg 58.967 kg 58.967 kg Intake: Intake, IV Titration 50 Amount Piperacillin-Tazobactam 3 50 .375 gm In Dextrose/Water 1 50ml.bag @ 12.5 mls/hr IVPB ONCE STA Rx#: [id number] Oral 360 Other: Voiding Method Incontinent Toilet Incontinent # Voids 4 1 - Exam Physical Exam: Revealed a 57-year-old female in no distress, very pleasant. Head: Atraumatic, normocephalic. HEENT:[Neck is supple.] [No neck masses.] [No thyromegaly.] [No JVD.] No icterus. Throat is clear. Chest: [Right side is clear, diminished breath sounds and dullness at the left base. No rhonchi and no wheezes. Cardiac Exam: [Normal S1 and S2, no S3 gallop, no murmur.] Abdomen: [Soft, nontender, no megaly, no rebound, no guarding, normal bowel sounds.] Extremities: [No clubbing, no edema, no cyanosis.] Neurological Exam: Minimal residual left hemiparesis. Otherwise the patient is alert oriented 3, no gross focal deficit other than mentioned. Psychiatric: Normal mood affect and mental status examination. Lymphatics: No lymphadenopathy. - Labs CBC & Chem 7: 02/15/18 11:00 02/15/18 11:00 Labs: Abnormal Lab Results - Last 24 Hours (Table) 02/15/18 02/15/18 Range/Units 11:00 11:00 WBC 17.7 H (3.8-10.6) k/uL RBC 3.09 L (3.80-5.40) m/uL Hgb 9.0 L (11.4-16.0) gm/dL Hct 29.1 L (34.0-46.0) % RDW 16.9 H (11.5-15.5) % Plt Count 659 H (150-450) k/uL Neutrophils # 15.5 H (1.3-7.7) k/uL Creatinine 0.40 L (0.52-1.04) mg/dL Glucose 112 H (74-99) mg/dL Albumin 2.8 L (3.5-5.0) g/dL Assessment and Plan Assessment: Impression: 1 subacute loculated left pleural effusion, most likely parapneumonic in nature. 2 recent left lower lobe pneumonia, treated at [facility], however the patient developed what seems to be a complicated left pleural effusion. 3 recent CVA and left-sided hemiparesis, patient is maintained on aspirin and Plavix. 4 multiple comorbidities including recent septic shock, opioid intoxication, recent respiratory failure requiring intubation and mechanical ventilation, history of depression, history of underlying COPD, tobacco dependence syndrome, severe protein calorie malnutrition benign essential hypertension recent right MCA CVA with residual left-sided weakness. Recommendation: The patient was seen and evaluated by Dr. Eddy. Follow-up chest x-ray and labs reviewed. We'll await pigtail insertion per interventional radiology possible. Cardiothoracic surgeons feel there would be increased risk of bleeding with decortication due to the patient's Plavix. In the interim, we'll continue her current pulmonary medications. Will increase her activity as tolerated. Continue with the incentive spirometer. Again educated regarding the importance of complete smoking cessation. NicoDerm patch is in place. We' ll continue to follow. I, the cosigning physician, performed a history & physical examination of the patient. Lungs sounds diminished in the left posterior base. Maintaining good O2 saturations in the 90s on room air. I discussed the assessment and plan of care with my nurse practitioner, Laurie Moore. I attest to the above note as dictated by her.
[2018-02-16] MEDS ORDERED: MORPHINE SULFATE 2 MG/ML SYRINGE IVP ONE (12:03)
--- NOTE | 2018-02-16 12:54 | XR ---
EXAMINATION TYPE: XR chest 1V portable DATE OF EXAM: 02/16/2018 COMPARISON: Prior chest x-ray 02/16/2018 and earlier time. HISTORY: Pleural effusion, status post chest tube placement TECHNIQUE: Single frontal view of the chest is obtained. FINDINGS: There is been interval chest tube placement on the left. No evident pneumothorax. No signi ficant change. IMPRESSION: Interval chest tube placement.
[2018-02-16] MEDS: LEVOFLOXACIN 750MG-D5W PMX 750 MG in DEXTROSE/WATER 1 150ML.BAG IVPB SCH (13:26)
--- NOTE | 2018-02-16 13:27 | US ---
EXAMINATION TYPE: US guided chest tube insertion DATE OF EXAM: 02/16/2018 COMPARISON: Ultrasound 02/16/2018 HISTORY: Loculated pleural effusion PROCEDURE: Skin overlying a suitable path to the posterior fusion was localized with ultrasound and t he overlying skin prepped and draped. Lidocaine was used for local anesthesia. Ultrasound was used to sterile technique. A skin marybel was made with a scalpel. 21-gauge needle was advanced using ultrasoun d guidance into the pleural space. Serous fluid aspirated in the hub of the needle. A 0.018 inch wire was advanced and subsequently access site was dilated and a 10 Palau[place] catheter advanced into the ple ural space. Catheter was fixed in place. 20 cc serous fluid aspirated. Catheter attached to water sea l, hemostasis achieved, no immediate application, post procedure chest x-ray pending. This remains st able condition. IMPRESSION: Status post ultrasound chest tube insertion. This procedure performed by the undersigned
--- NOTE | 2018-02-16 14:17 | XR ---
EXAMINATION TYPE: XR chest 1V portable DATE OF EXAM: 02/16/2018 COMPARISON: Prior chest same day earlier time HISTORY: Chest tube placement, pleural effusion TECHNIQUE: Single frontal view of the chest is obtained. FINDINGS: Left-sided chest tube is in place. No evident pneumothorax. Pleural parenchymal changes ar e stable. IMPRESSION: No evident complication status post chest tube placement
[2018-02-16 15:18] LABS: Appearance,BF Cloudy; Color,BF Yellow; Nucleated Cells, Body Fluid 120 /uL; RBC, Body Fluid 2480 /uL
[2018-02-16 15:20] LABS: Mononuclear WBC,Body Fluid 5 %; Polynuclear WBC,Body Fluid 95 %; Total Cells Counted,Body Fluid 100
[2018-02-16 21:16] LABS: Total Protein, Body Fluid 4400 mg/dL
[2018-02-16] MEDS: traZODone HCL 50 MG TAB PO SCH (22:12)
[2018-02-16] MEDS: ATORVASTATIN 20 MG TAB PO SCH (22:13)
[2018-02-16] MEDS: traMADol 50 MG TAB PO PRN (22:13)
--- NOTE | 2018-02-16 23:48 | PN ---
PROGRESS NOTE DATE OF SERVICE: 02/16/2018. PRESENTING COMPLAINT: Short of breath. INTERVAL HISTORY: This patient was treated for recent pneumonia, discharged from [facility], presented with worsening pneumonia, yellow sputum and a parapneumonic effusion. A chest tube was placed and about 20 mL of serous fluid was obtained. at the bedside. The patient did tolerate some diet. REVIEW OF SYSTEMS: Done for constitutional, cardiovascular, GI, pulmonary; relevant findings as above. CURRENT MEDICATIONS: Reviewed. They include DuoNeb, IV Levaquin, IV Zosyn. PHYSICAL EXAMINATION: Afebrile. Pulse 83, respiration 16, blood pressure 120/76, pulse ox 95% on room air. GENERAL APPEARANCE: Lying in bed. EYES: Pupil equal. Conjunctivae pale. HEENT: External appearance of nose and ears normal. Oral cavity normal. NECK: JVD not raised. Mass not palpable. RESPIRATORY: Effort increased. LUNGS: Decreased breath sounds. Splinting on the left side with a chest tube now in place. CARDIOVASCULAR: First and second sounds normal. No edema. ABDOMEN: Soft, nontender. Liver and spleen not palpable. PSYCHIATRY: Alert and oriented x3. Mood and affect anxious-appearing. INVESTIGATIONS: Chest x-ray results noted. ASSESSMENT: 1. Left-sided parapneumonic effusion along with pneumonia, now with a chest tube in place. 2. Chronic obstructive pulmonary disease in a current smoker. 3. Chronic nicotine dependence. Patient is a current cigarette smoker. 4. Gastroesophageal reflux disease. 5. Essential hypertension. 6. Hyperlipidemia. 7. Irritable bowel syndrome. 8. Peripheral neuropathy, idiopathic. 9. Chronic low back pain. 10.Normocytic anemia, multifactorial, including nutritional. 11.Reactive thrombocytosis. PLAN: Continue current medication and treatment plan, including antibiotics. Patient's Gram stain and cultures are pending. Care was discussed with the patient and at the bedside. Follow with Pulmonary. MMODL / IJN: [id number] /
[2018-02-17] MEDS: PIPERACILLIN-TAZOBACTAM 3.375 GM in DEXTROSE/WATER 1 50ML.BAG IVPB SCH ×3 (00:34→17:39)
[2018-02-17] MEDS: IPRATROPIUM-ALBUTEROL 3 ML NEB INHALATION SCH ×6 (03:38→23:20)
[2018-02-17] MEDS: SYMBICORT 160-4.5 MCG INHALER INHALATION SCH ×2 (07:12→19:49)
[2018-02-17 07:45] LABS: Anisocytosis Slight; Basophils % (A) 0 %; Eosinophils # (A) 0.2 k/uL (0-0.7); Eosinophils % (A) 1 %; Hypochromasia Moderate; Lymphocytes # (A) 0.9 k/uL (1.0-4.8); Lymphocytes % (A) 7 %; MCH 28.4 pg (25.0-35.0); MCHC 30.1 g/dL (31.0-37.0); MCV 94.5 fL (80.0-100.0); Mean Platelet Volume 6.6; Monocytes # (A) 0.7 k/uL (0-1.0); Monocytes % (A) 6 %; Neutrophils # (A) 10.7 k/uL (1.3-7.7); Neutrophils % (A) 84 %; Platelet Count 686 k/uL (150-450); RBC 3.17 m/uL (3.80-5.40); RDW 16.7 % (11.5-15.5); WBC 12.8 k/uL (3.8-10.6)
[2018-02-17 07:50] LABS: Anion Gap 9 mmol/L; Blood Urea Nitrogen 8 mg/dL (7-17); Calcium 8.9 mg/dL (8.4-10.2); Carbon Dioxide 24 mmol/L (22-30); Chloride 103 mmol/L (98-107); Glucose 96 mg/dL (74-99); Potassium 4.3 mmol/L (3.5-5.1); Sodium 136 mmol/L (137-145)
[2018-02-17] MEDS ORDERED: ALTEPLASE 10 MG in SODIUM CHLORIDE 0.9% 100 ML IRRIGATION ONE (08:00)
[2018-02-17] MEDS: ASPIRIN 81 MG PO SCH (08:03)
[2018-02-17] MEDS: amLODIPine 10 MG TAB PO SCH (08:03)
[2018-02-17] MEDS: NICOTINE 21MG/24HR PATCH TRANSDERM SCH (08:04)
[2018-02-17] MEDS: ATENOLOL 25 MG TAB PO SCH ×2 (08:04→21:04)
[2018-02-17] MEDS: LORATADINE 10 MG TAB PO SCH (08:04)
[2018-02-17] MEDS: CLOPIDOGREL 75 MG TAB PO SCH (08:04)
[2018-02-17] MEDS: traMADol 50 MG TAB PO PRN ×3 (08:07→19:41)
--- NOTE | 2018-02-17 10:11 | XR ---
EXAMINATION TYPE: XR chest 2V DATE OF EXAM: 02/17/2018 COMPARISON: 02/16/2018 HISTORY: Shortness of breath TECHNIQUE: Frontal and lateral views of the chest are obtained. FINDINGS: Scattered senescent parenchymal changes noted. Hyperinflation compatible with COPD. Left perihilar and left basilar opacity persists which reflects a combination of effusion with atelec tasis and/or infiltrate. Overall slight improvement may be present. Heart size is stable. Mediastinal structures are stable and grossly unremarkable. No evidence for hilar prominence. Degenerative changes dorsal spine. IMPRESSION: 1. Left perihilar and left basilar opacity persists which reflects a combination of effusion with ate lectasis and/or infiltrate. Overall slight improvement may be present.
--- NOTE | 2018-02-17 10:46 | P.PN ---
Subjective Progress Note Date: 02/17/18 Principal diagnosis: Left-sided loculated pleural effusion. Previous medical history of COPD, two pack per day tobacco abuse, opioid abuse, CVA 2 this year with continued left- sided deficit, right carotid stent at [facility] on 01/01/2028, subsequent pneumonia/septic shock and respiratory failure with prolonged mechanical ventilation, hypertension, hyperlipidemia, irritable bowel syndrome, chronic low back pain, and depression. The patient is currently sitting up to the bedside edge and no acute distress. She is tolerating her breakfast. She denies any complaints of shortness of breath but is complaining of pain to her left lateral chest wall 5 out of 10 on the pain scale. Left chest pigtail catheter in place to water seal, draining thin serous drainage. Objective - Vital Signs Vital signs: Vital Signs Temp 98.4 F 02/17/18 06:15 Pulse 88 02/17/18 07:23 Resp 18 02/17/18 06:15 BP 144/65 02/17/18 06:15 Pulse Ox 92 L 02/17/18 06:15 Intake & Output 02/16/18 02/17/18 02/17/18 18:59 06:59 18:59 Output Total 70 15 Balance -70 -15 Weight 58.967 kg Output: Drainage 35 15 Left Back 35 15 Other 35 Other: Voiding Method Toilet Toilet Toilet Incontinent # Voids 1 1 - Constitutional General appearance: Present: cooperative, no acute distress - Respiratory Details: Lung sounds essentially clear to her bilateral upper lobes, diminished bilateral bases left greater than right. Respirations are symmetrical and nonlabored. Oxygen saturation are 92% on room air. She is achieving 1250 mL on her incentive spirometry. Left lateral chest pigtail catheter in place, no air leak present. Draining thin serous drainage. - Cardiovascular Details: Regular rhythm and rate. S1 and S2 present, razo systolic murmur 3/6. No edema present. - Gastrointestinal Gastrointestinal Comment(s): Abdomen is soft, nontender nondistended. Active bowel sounds to all 4 abdominal quadrants. Tolerating oral intake. - Genitourinary Genitourinary Comment(s): Voiding clear madelaine urine. - Integumentary Integumentary Comment(s): Skin is warm and dry. No clubbing or cyanosis present. No rash or abnormal pigmentation present. - Neurologic Neurologic Comment(s): No focal deficits. Neurologic: Present: CNII-XII intact - Musculoskeletal Musculoskeletal: Present: gait normal, strength equal bilaterally - Psychiatric Psychiatric: Present: A&O x's 3, appropriate affect, intact judgment & insight - Allied health notes Allied health notes reviewed: nursing - Labs CBC & Chem 7: 02/17/18 07:17 02/17/18 07:17 Labs: Abnormal Lab Results - Last 24 Hours (Table) 02/17/18 02/17/18 Range/Units 07:17 07:17 WBC 12.8 H (3.8-10.6) k/uL RBC 3.17 L (3.80-5.40) m/uL Hgb 9.0 L (11.4-16.0) gm/dL Hct 30.0 L (34.0-46.0) % MCHC 30.1 L (31.0-37.0) g/dL RDW 16.7 H (11.5-15.5) % Plt Count 686 H (150-450) k/uL Neutrophils # 10.7 H (1.3-7.7) k/uL Lymphocytes # 0.9 L (1.0-4.8) k/uL Sodium 136 L (137-145) mmol/L Creatinine 0.42 L (0.52-1.04) mg/dL Microbiology - Last 24 Hours (Table) 02/16/18 12:45 Acid Fast Bacilli Smear - Final Pleural Fluid Acid Fast Bacilli Culture - Preliminary 02/16/18 15:10 Gram Stain - Preliminary Sputum Sputum Culture - Preliminary 02/16/18 12:45 Gram Stain - Preliminary Pleural Fluid Body Fluid Culture - Preliminary 02/16/18 12:45 Fungal Culture - Preliminary Pleural Fluid 02/15/18 11:00 Blood Culture - Preliminary Blood No Growth after 24 hours - Imaging and Cardiology Chest x-ray: report reviewed, image reviewed Assessment and Plan (1) Loculated pleural effusion Current Visit: Yes Status: Acute Code(s): J90 - PLEURAL EFFUSION, NOT ELSEWHERE CLASSIFIED SNOMED Code(s): 750773781 (2) Pneumonia Current Visit: Yes Status: Acute Code(s): J18.9 - PNEUMONIA, UNSPECIFIED ORGANISM SNOMED Code(s): 399748005 (3) Anemia Current Visit: Yes Status: Chronic Code(s): D64.9 - ANEMIA, UNSPECIFIED SNOMED Code(s): 461686620 (4) COPD (chronic obstructive pulmonary disease) Current Visit: Yes Status: Chronic Code(s): J44.9 - CHRONIC OBSTRUCTIVE PULMONARY DISEASE, UNSPECIFIED SNOMED Code(s): 20323692 (5) Chronic low back pain Current Visit: Yes Status: Chronic Code(s): M54.5 - LOW BACK PAIN; G89.29 - OTHER CHRONIC PAIN SNOMED Code(s): 683227455 (6) Depression Current Visit: Yes Status: Chronic Code(s): F32.9 - MAJOR DEPRESSIVE DISORDER, SINGLE EPISODE, UNSPECIFIED SNOMED Code(s): 56731173 (7) History of stroke with residual deficit Current Visit: Yes Status: Chronic Code(s): I69.30 - UNSPECIFIED SEQUELAE OF CEREBRAL INFARCTION SNOMED Code(s): 591730812 (8) Hx of opioid abuse Current Visit: Yes Status: Chronic Code(s): Z87.898 - PERSONAL HISTORY OF OTHER SPECIFIED CONDITIONS SNOMED Code(s): 780687755 (9) Hyperlipidemia Current Visit: Yes Status: Chronic Code(s): E78.5 - HYPERLIPIDEMIA, UNSPECIFIED SNOMED Code(s): 52059692 (10) Hypertension Current Visit: Yes Status: Chronic Code(s): I10 - ESSENTIAL (PRIMARY) HYPERTENSION SNOMED Code(s): 89532246 (11) Irritable bowel syndrome Current Visit: Yes Status: Chronic Code(s): K58.9 - IRRITABLE BOWEL SYNDROME WITHOUT DIARRHEA SNOMED Code(s): 97067112 (12) Tobacco abuse Current Visit: Yes Status: Chronic Code(s): Z72.0 - TOBACCO USE SNOMED Code(s): 562236422 (13) History of respiratory failure Current Visit: No Status: Resolved Code(s): Z87.09 - PERSONAL HISTORY OF OTHER DISEASES OF THE RESPIRATORY SYSTEM SNOMED Code(s): 865995556 Plan: 1. No surgical intervention at this time as patient is on Plavix and is very high risk for significant bleeding with decortication. 2. Left chest pigtail catheter placed yesterday by interventional radiology, 10 mg of alteplase with 100 mL of 0.9% normal saline instilled through the pigtail today at 8:10 AM per physician's orders. The pigtail catheter was clamped for 1 hour post instillation. 3. Pain control per Dr. Domingo. 4. Incentive spirometer ordered, encourage use 10 times every hour. 5. Continue IV antibiotics per Dr. Domingo/Dr. Eddy. 6. Medical management per primary, pulmonology. 7. Further recommendations to follow based on patient's clinical course. Time with Patient: Greater than 30
[2018-02-17] MEDS: LEVOFLOXACIN 750MG-D5W PMX 750 MG in DEXTROSE/WATER 1 150ML.BAG IVPB SCH (12:51)
[2018-02-17] MEDS: ACETAMINOPHEN TAB 325 MG TAB PO PRN ×2 (13:53→19:40)
--- NOTE | 2018-02-17 14:22 | P.PN ---
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 Patient underwent stent placement supposedly in the middle cerebral artery, and she was treated for pneumonia while inpatient. Antibiotics at the time included Unasyn and I believe Zosyn initially she was treated with clindamycin. Her problems included opiate overdose, acute metabolic encephalopathy, septic shock secondary to pneumonia, hypertension, electrolytes imbalance, patient was on mechanical ventilation for quite some time, and she was eventually discharged home on February 09. A few days ago, the patient supposedly fell at home, and she landed on the left side of her chest. Has been complaining of significant pain on the left side of the chest, presented to our ER today complaining of chest pain. No cough no wheezing no fever no chills no hemoptysis and her chest x-ray showed pleural effusion with left lower lobe atelectasis. CT of the chest showed loculated pleural effusion , this was confirmed by ultrasound and there was clearly multiple areas of septation noted on the ultrasound of the chest. Considering the findings on the CT of the chest and ultrasound, I was asked to see the patient on consultation. Presently the patient seems to have fully recovered from her CVA with residual minimal left-sided weakness. Denies any headache, no blurred vision, no dizziness, no dysphagia, no dysarthria, she has some chest pain, she has underlying COPD, chronic cough, again no fever no chills no hemoptysis. No nausea no vomiting no abdominal pain no melena no hematemesis no dysuria frequency no urgency. Patient is maintained on multiple meds at home including Plavix, lisinopril, aspirin 81 mg daily, she is also supposedly on nicotine patches and on trazodone as well as Ultram and thiamine. The patient is seen again today 02/16/2018 in follow-up on the regular medical floor. She is awake and alert in no acute distress. She is still having ongoing discomfort in the left chest area. She is maintaining good O2 saturations in the 90s on room air. She's been afebrile. Hemodynamically stable. She had been seen and evaluated by cardiothoracic surgeons who do not feel surgical intervention would be safe based on her current need for Plavix with increased risk of bleeding with decortication. They're recommending a pigtail catheter for lytic therapy to be inserted per interventional radiology. The patient seen again today 02/17/2018 in follow-up on the regular medical floor. She is currently resting quite comfortably in bed. She is awake and alert in no acute distress. She denies any worsening shortness of breath. She does have ongoing left-sided chest discomfort. She is maintaining O2 saturations in the 90s on room air. She's been afebrile. She is now status post left chest pigtail catheter insertion which is placed to waterseal and draining thin serous drainage. She did undergo lytic therapy with alteplase earlier this morning. Objective - Vital Signs Vital signs: Vital Signs Temp 98.4 F 02/17/18 06:15 Pulse 84 02/17/18 10:57 Resp 18 02/17/18 06:15 BP 144/65 02/17/18 06:15 Pulse Ox 92 L 02/17/18 06:15 Intake & Output 02/16/18 02/17/18 02/17/18 18:59 06:59 18:59 Output Total 70 15 130 Balance -70 -15 -130 Weight 58.967 kg Output: Drainage 35 15 130 Left Back 35 15 130 Other 35 Other: Voiding Method Toilet Toilet Toilet Incontinent # Voids 1 1 - Exam Physical Exam: Revealed a 57-year-old female in no distress, very pleasant. Head: Atraumatic, normocephalic. HEENT:Neck is supple. No neck masses. No thyromegaly. No JVD. No icterus. Throat is clear. Chest: Right side is clear, diminished breath sounds and dullness at the left base. No rhonchi and no wheezes. Left-sided pigtail catheter in place. Cardiac Exam: Normal S1 and S2, no S3 gallop, no murmur. Abdomen: Soft, nontender, no megaly, no rebound, no guarding, normal bowel sounds. Extremities: No clubbing, no edema, no cyanosis. Neurological Exam: Minimal residual left hemiparesis. Otherwise the patient is alert oriented 3, no gross focal deficit other than mentioned. Psychiatric: Normal mood affect and mental status examination. Lymphatics: No lymphadenopathy. - Labs CBC & Chem 7: 02/17/18 07:17 02/17/18 07:17 Labs: Abnormal Lab Results - Last 24 Hours (Table) 02/17/18 02/17/18 Range/Units 07:17 07:17 WBC 12.8 H (3.8-10.6) k/uL RBC 3.17 L (3.80-5.40) m/uL Hgb 9.0 L (11.4-16.0) gm/dL Hct 30.0 L (34.0-46.0) % MCHC 30.1 L (31.0-37.0) g/dL RDW 16.7 H (11.5-15.5) % Plt Count 686 H (150-450) k/uL Neutrophils # 10.7 H (1.3-7.7) k/uL Lymphocytes # 0.9 L (1.0-4.8) k/uL Sodium 136 L (137-145) mmol/L Creatinine 0.42 L (0.52-1.04) mg/dL Microbiology - Last 24 Hours (Table) 02/15/18 11:00 Blood Culture - Preliminary Blood No Growth after 48 hours 02/16/18 12:45 Gram Stain - Preliminary Pleural Fluid Body Fluid Culture - Preliminary 02/16/18 12:45 Acid Fast Bacilli Smear - Final Pleural Fluid Acid Fast Bacilli Culture - Preliminary 02/16/18 15:10 Gram Stain - Preliminary Sputum Sputum Culture - Preliminary 02/16/18 12:45 Fungal Culture - Preliminary Pleural Fluid Assessment and Plan Assessment: Impression: 1 subacute loculated left pleural effusion, most likely parapneumonic in nature. Status post left chest pigtail catheter placement currently to waterseal with serous drainage. Status post lytic therapy. 2 recent left lower lobe pneumonia, treated at [facility], however the patient developed what seems to be a complicated left pleural effusion. 3 recent CVA and left-sided hemiparesis, patient is maintained on aspirin and Plavix. 4 multiple comorbidities including recent septic shock, opioid intoxication, recent respiratory failure requiring intubation and mechanical ventilation, history of depression, history of underlying COPD, tobacco dependence syndrome, severe protein calorie malnutrition benign essential hypertension recent right MCA CVA with residual left-sided weakness. Recommendation: The patient was seen and evaluated by Dr. Eddy. Follow-up chest x-ray and labs reviewed. She did receive alteplase to the pigtail in the left chest today. We'll continue her current pulmonary medications. Will increase her activity as tolerated. Continue with the incentive spirometer. Again educated regarding the importance of complete smoking cessation. NicoDerm patch is in place. We'll continue to follow. I, the cosigning physician, performed a history & physical examination of the patient. Lungs sounds diminished in the left posterior base. Maintaining good O2 saturations in the 90s on room air. I discussed the assessment and plan of care with my nurse practitioner, Laurie Moore. I attest to the above note as dictated by her.
[2018-02-17] MEDS: traZODone HCL 50 MG TAB PO SCH (21:00)
[2018-02-17] MEDS: ATORVASTATIN 20 MG TAB PO SCH (21:07)
[2018-02-18] MEDS: traMADol 50 MG TAB PO PRN ×2 (01:04→07:49)
[2018-02-18] MEDS: ACETAMINOPHEN TAB 325 MG TAB PO PRN ×2 (01:04→07:48)
[2018-02-18] MEDS: PIPERACILLIN-TAZOBACTAM 3.375 GM in DEXTROSE/WATER 1 50ML.BAG IVPB SCH ×3 (01:05→15:03)
[2018-02-18] MEDS: IPRATROPIUM-ALBUTEROL 3 ML NEB INHALATION SCH ×3 (03:19→11:22)
[2018-02-18] MEDS ORDERED: ALTEPLASE 10 MG in SODIUM CHLORIDE 0.9% 100 ML IRRIGATION ONE (07:00)
[2018-02-18 07:27] LABS: Anion Gap 12 mmol/L; Blood Urea Nitrogen 20 mg/dL (7-17); Carbon Dioxide 20 mmol/L (22-30); Chloride 101 mmol/L (98-107); Glucose 106 mg/dL (74-99); Potassium 4.5 mmol/L (3.5-5.1); Sodium 133 mmol/L (137-145)
[2018-02-18 07:28] LABS: Calcium 8.3 mg/dL (8.4-10.2)
[2018-02-18] MEDS: SYMBICORT 160-4.5 MCG INHALER INHALATION SCH (07:31)
--- NOTE | 2018-02-18 07:35 | PN ---
PROGRESS NOTE DATE OF SERVICE: 02/17/2018 PRESENTING COMPLAINT: Short of breath. INTERVAL HISTORY: This patient has pneumonia presented with parapneumonic effusion, left-sided chest tube in place. Ultram was added for pain and heating pad, Tylenol. Oral intake is not too good. Lying in bed. REVIEW OF SYSTEMS: Done for constitutional, cardiovascular, GI, pulmonary; relevant findings as above. CURRENT MEDICATIONS: Reviewed that include DuoNeb, IV Zosyn and Levaquin. PHYSICAL EXAMINATION: Temperature 98.3, pulse 76, respiration 20, blood pressure 107/73, pulse ox 92% on room air. GENERAL APPEARANCE: Lying in bed, awake. EYES: Pupils equal. Conjunctivae are pale. HEENT: External appearance of nose and ear normal, oral cavity normal. NECK: JVD not raised. Mass not palpable. RESPIRATORY: Effort increased. LUNGS: Decreased breath sounds. Left-sided chest tube. CARDIOVASCULAR: First and second sounds normal, no edema. ABDOMEN: Soft, nontender. Liver and spleen not palpable. PSYCHIATRY: Alert and oriented x3. Mood and affect anxious. INVESTIGATIONS: White count 12.8, hemoglobin 9, potassium 4.3. Cultures are pending. ASSESSMENT: 1. Left-sided parapneumonic effusion secondary to pneumonia with a chest tube in place. Cultures are pending. 2. Chronic obstructive pulmonary disease in a current smoker. 3. Chronic nicotine dependence, patient active cigarette smoker. 4. Gastroesophageal reflux disease. 5. Essential hypertension. 6. Hyperlipidemia. 7. Irritable bowel syndrome. 8. Peripheral neuropathy, idiopathic. 9. Chronic low back pain. 10.Normocytic anemia multifactorial including nutritional. 11.Reactive thrombocytosis. PLAN: Care was discussed with the patient. Continue current medication and treatment plan. Follow with Pulmonary. MMODL / IJN: [id number] /
[2018-02-18 09:11] LABS: Anisocytosis Slight; Basophils # (A) 0.1 k/uL (0-0.2); Basophils % (A) 0 %; Eosinophils # (A) 0.1 k/uL (0-0.7); Eosinophils % (A) 1 %; HGB 11.3 gm/dL (11.4-16.0); Hypochromasia Marked; Lymphocytes # (A) 1.1 k/uL (1.0-4.8); Lymphocytes % (A) 6 %; MCH 28.6 pg (25.0-35.0); MCHC 30.4 g/dL (31.0-37.0); MCV 94.1 fL (80.0-100.0); Mean Platelet Volume 7.3; Monocytes % (A) 6 %; Neutrophils # (A) 13.7 k/uL (1.3-7.7); Neutrophils % (A) 84 %; Platelet Count 718 k/uL (150-450); RBC 3.94 m/uL (3.80-5.40); RDW 16.4 % (11.5-15.5); WBC 16.3 k/uL (3.8-10.6)
[2018-02-18] MEDS: amLODIPine 10 MG TAB PO SCH (09:17)
[2018-02-18] MEDS: ATENOLOL 25 MG TAB PO SCH (09:17)
[2018-02-18 09:48] LABS: Glucose,Whole Blood 134 mg/dL (75-99)
[2018-02-18] MEDS ORDERED: IV FLUID CONTINUATION 1,000 ML IV ONE (09:54)
[2018-02-18] MEDS ORDERED: LIDOCAINE 1% INJ 10MG/ML (20 ML MDV) ONE (09:55)
[2018-02-18] MEDS ORDERED: PROPOFOL 10 MG/ML 20 ML VIAL IV ONE (09:55)
--- NOTE | 2018-02-18 10:20 | US ---
EXAMINATION TYPE: US chest DATE OF EXAM: 02/18/2018 COMPARISON: 02/15/2018 CLINICAL HISTORY: 57-year-old female Markings for thoracentesis by pulmonary staff. Assess for fluid, Dr Eddy questioning if lung is collapsed TECHNIQUE: Targeted ultrasound of the posterior lower left hemithorax Findings: There is a small to moderate mildly complex left pleural effusion. Mine Wirer notes:*Dr Eddy was there for imaging and decided to taking patient to OR for left lung No marking done Pulmonologists are able to review the images in the patient?s EMR. IMPRESSIONS: [id number] sized left pleural effusion with mild complexity. No markings performed. See above.
[2018-02-18] MEDS ORDERED: CISATRACURIUM 2 MG/ML 5 ML VIAL IV ONE ×2 (10:41→11:25)
[2018-02-18] MEDS ORDERED: NOREPINEPHRINE 16 MG in SODIUM CHLORIDE 0.9% 250 ML IV SCH (10:45)
--- NOTE | 2018-02-18 10:50 | XR ---
EXAMINATION TYPE: XR chest 1V portable DATE OF EXAM: 02/18/2018 Comparison: 02/18/2018 Clinical History: 57-year-old female with sob, intubation Findings: ET tube is satisfactory. NG tube courses below the diaphragm. Cholecystectomy clips. A left-sided pig tail pleural drain is present at the left base. There is a moderate left pleural effusion, decreased in size from 02/18/2018. Left-sided pneumothorax is demonstrated. The apical margin measures 3.3 cm fr om the pleural surface. Impression: 1. Satisfactory ET tube. 2. Left-sided pneumothorax, probably small to moderate in size. 3. There is some improvement but with residual moderate left pleural effusion with adjacent atelectas is and/or consolidation. Left basilar pleural drain remains in place.
[2018-02-18] MEDS ORDERED: HYDROmorphone 1 MG/ML 1 ML SYRINGE IVP PRN (11:05)
--- NOTE | 2018-02-18 11:11 | XR ---
EXAMINATION TYPE: XR chest 2V DATE OF EXAM: 02/18/2018 COMPARISON: 02/17/2018 HISTORY: 57 year-old female left pleural effusion TECHNIQUE: AP and lateral views FINDINGS: Near complete white out of the left hemithorax. Minimal aerated lung remains at the apex. Unable to d etermine heart size. Right lung and pleural space are relatively clear. A left-sided left basilar ple ural drain remains in place. IMPRESSION: Near complete white out of the left hemithorax suggesting significant interval increase in the patien t's left effusion and underlying atelectasis/consolidation. A left-sided pigtail pleural drain remain s in place.
[2018-02-18] MEDS ORDERED: PROPOFOL 1,000 MG in EMPTY BAG 1 BAG IV SCH (11:15)
--- NOTE | 2018-02-18 11:52 | XR ---
EXAMINATION TYPE: XR chest 1V portable DATE OF EXAM: 02/18/2018 Comparison: Earlier today Clinical History: 57-year-old female with line placement Findings: ET and NG tubes remain satisfactory. Left IJ CVC tip in the right atrium. Otherwise, continued moderate, now moderate to large left pleural effusion. Known left apical pneumot horax is not as well seen but otherwise relatively similar in size. Left-sided basilar pigtail pleura l drain in place. Impression: 1. Left IJ CVC tip in the right atrium. 2. Known left-sided pneumothorax not as well seen on the present exam. Moderate, now moderate to larg e left pleural effusion with femoral catheter in place.
[2018-02-18] MEDS ORDERED: LEVOFLOXACIN 750MG-D5W PMX 750 MG in DEXTROSE/WATER 1 150ML.BAG IVPB SCH (12:00)
[2018-02-18] MEDS ORDERED: LEVOFLOXACIN 750 MG TAB PO SCH (12:00)
--- NOTE | 2018-02-18 12:03 | XR ---
EXAMINATION TYPE: XR chest 1V portable DATE OF EXAM: 02/18/2018 Comparison: Earlier today Clinical History: 57-year-old female chest tube placement Findings: ET tube and NG tube are satisfactory. Redemonstrated left IJ CVC tip in the right atrium. Moderate to large left pleural effusion redemonstrated. Left basilar pleural catheter is present. A second pleur al catheter now placed in the upper left hemithorax. Left-sided pneumothorax is redemonstrated measuring 4.0 cm from the apical margin. Impression: A second pleural catheter has been placed in the left upper hemithorax. Moderate to large left pleura l effusion remains and redemonstrated left-sided pneumothorax. This currently measures 4.0 cm from th e apical margin, relatively similar to earlier today.
[2018-02-18 12:10] LABS: ABG Base Excess -5.4 mmol/L; ABG HCO3 21 mmol/L (21-25); ABG PCO2 43 mmHg (35-45); ABG PO2 153 mmHg (83-108); ABG TCO2 22 mmol/L (19-24)
[2018-02-18] MEDS ORDERED: CISATRACURIUM 200 MG in SODIUM CHLORIDE 0.9% 180 ML IV SCH (12:15)
--- NOTE | 2018-02-18 12:52 | P.PN ---
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 Patient underwent stent placement supposedly in the middle cerebral artery, and she was treated for pneumonia while inpatient. Antibiotics at the time included Unasyn and I believe Zosyn initially she was treated with clindamycin. Her problems included opiate overdose, acute metabolic encephalopathy, septic shock secondary to pneumonia, hypertension, electrolytes imbalance, patient was on mechanical ventilation for quite some time, and she was eventually discharged home on February 09. A few days ago, the patient supposedly fell at home, and she landed on the left side of her chest. Has been complaining of significant pain on the left side of the chest, presented to our ER today complaining of chest pain. No cough no wheezing no fever no chills no hemoptysis and her chest x-ray showed pleural effusion with left lower lobe atelectasis. CT of the chest showed loculated pleural effusion , this was confirmed by ultrasound and there was clearly multiple areas of septation noted on the ultrasound of the chest. Considering the findings on the CT of the chest and ultrasound, I was asked to see the patient on consultation. Presently the patient seems to have fully recovered from her CVA with residual minimal left-sided weakness. Denies any headache, no blurred vision, no dizziness, no dysphagia, no dysarthria, she has some chest pain, she has underlying COPD, chronic cough, again no fever no chills no hemoptysis. No nausea no vomiting no abdominal pain no melena no hematemesis no dysuria frequency no urgency. Patient is maintained on multiple meds at home including Plavix, lisinopril, aspirin 81 mg daily, she is also supposedly on nicotine patches and on trazodone as well as Ultram and thiamine. The patient is seen again today 02/16/2018 in follow-up on the regular medical floor. She is awake and alert in no acute distress. She is still having ongoing discomfort in the left chest area. She is maintaining good O2 saturations in the 90s on room air. She's been afebrile. Hemodynamically stable. She had been seen and evaluated by cardiothoracic surgeons who do not feel surgical intervention would be safe based on her current need for Plavix with increased risk of bleeding with decortication. They're recommending a pigtail catheter for lytic therapy to be inserted per interventional radiology. The patient seen again today 02/17/2018 in follow-up on the regular medical floor. She is currently resting quite comfortably in bed. She is awake and alert in no acute distress. She denies any worsening shortness of breath. She does have ongoing left-sided chest discomfort. She is maintaining O2 saturations in the 90s on room air. She's been afebrile. She is now status post left chest pigtail catheter insertion which is placed to waterseal and draining thin serous drainage. She did undergo lytic therapy with alteplase earlier this morning. Patient was reevaluated today on 02/18/2018, patient was on the fifth floor, and her nurse was concerned that the patient was desaturating and requiring more FiO2. She was also noted to have worsening chest x-ray with complete opacification of the left lung. Stat ultrasound showed some fluid around the lung, but the lungs seem to be completely collapsed, not explained by the small amount of fluid noted not to mention, the patient had significant amount of fluid drainage into her pleural VAC earlier this morning. Hence patient was brought up to the ICU, and I felt that the patient had a significant mucous plugging in the left mainstem bronchus. Anesthesia was notified, and the bronchial tear was brought in on an emergency basis to the ICU. Since the patient drank some juice earlier today, anesthesia felt that the patient should be intubated, and a nasogastric tube was placed and, and we performed bronchoscopy and lavage of the left lung. There was clearly significant amount of mucous plugs noted in the left mainstem bronchus. I was able to suction all the mucous plugs, and I lavaged the whole left lung. Postoperative chest x-ray showed good sized left-sided pneumothorax, and the patient is now on mechanical ventilation, continued to desaturate in spite of being on the percent FiO2. Repeat chest x-ray showed the pneumothorax was basically about the same 4 cm from the apex. Patient already had a previous pigtail catheter draining fluid at but it was placed and a pocket under ultrasound guidance couple of days ago by interventional radiology. Then proceeded to placing of a thoravent/left- sided chest tube on an emergency basis with local anesthetic. This was done by myself and Dr. Cao. Follow-up chest x-ray showed adequate placement of the catheter, but left lung was not expanding. This could be very well be related to all the loculation that was noted upon admission on CT of the chest and ultrasound of the chest done upon admission. Thoracic surgery was also notified about the whole process. In the meantime I kept the patient on mechanical ventilation, connected the chest tube to Pleur-evac, and there was another pigtail catheter connected to another Pleur-evac from interventional radiology which was placed 2 days ago. Patient will be kept on mechanical ventilation today, and we'll address possibly weeding in the next 24 hours. ABG was done on the percent FiO2 showed a pO2 of 153 pCO2 of 43 and pH of 7.30. All labs from today were reviewed including basic metabolic profile. CBC with evidence of leukocytosis WBC count of 16.3 hemoglobin is 11.3. Results from the pleural effusion from 2 days ago showed this effusion was exudative in nature, LDH was elevated, protein was elevated, and Glucotrol was 32. Cultures are not available at this point. Sputum cultures have been positive for beta hemolytic strep group C. Other cultures from the pleural effusion are pending. Cardiothoracic surgery is following the patient, however there seems to be some reluctance about decortication because she is considered very high risk for such procedure. Objective - Vital Signs Vital signs: Vital Signs Temp 98.0 F 02/18/18 07:44 Pulse 75 02/18/18 08:30 Resp 20 02/18/18 09:30 BP 94/52 02/18/18 08:30 Pulse Ox 89 L 02/18/18 08:30 Intake & Output 02/17/18 02/18/18 02/18/18 18:59 06:59 18:59 Intake Total 690 110 Output Total 003 89 2749 Balance -130 640 -890 Intake: IV 50 Intake, IV Titration 450 Amount Levofloxacin 750Mg-D5w 400 Pmx 750 mg In Dextrose/ Water 1 150ml.bag @ 100 mls/hr IVPB Q24H HARIKA Rx#: [id number] Piperacillin-Tazobactam 3 50 .375 gm In Dextrose/Water 1 50ml.bag @ 12.5 mls/hr IVPB Q8HR HARIKA Rx#: [id number] Oral 240 60 Output: Drainage [id number] Left Back [phone] Other: Voiding Method Toilet Toilet Toilet Diaper # Voids 1 - Exam Physical Exam: Revealed a 57-year-old female in [id number] respiratory distress when initially evaluated on the floor and transferred to the ICU. She was also complaining of left-sided chest pain. And unable to take a deep breath. Head: Atraumatic, normocephalic. HEENT:Neck is supple. No neck masses. No thyromegaly. No JVD. No icterus. Throat is clear. Chest: Right side is clear, diminished breath sounds and dullness over the left lung. Cardiac Exam: Normal S1 and S2, no S3 gallop, no murmur. Abdomen: Soft, nontender, no megaly, no rebound, no guarding, normal bowel sounds. Extremities: No clubbing, no edema, no cyanosis. Neurological Exam: Minimal residual left hemiparesis. Otherwise the patient is alert oriented 3, no gross focal deficit other than mentioned. Psychiatric: Normal mood affect and mental status examination. Lymphatics: No lymphadenopathy. - Labs CBC & Chem 7: 02/18/18 07:00 02/18/18 07:00 Labs: Abnormal Lab Results - Last 24 Hours (Table) 02/18/18 02/18/18 02/18/18 Range/Units 07:00 07:00 09:45 WBC 16.3 H (3.8-10.6) k/uL Hgb 11.3 L (11.4-16.0) gm/dL MCHC 30.4 L (31.0-37.0) g/dL RDW 16.4 H (11.5-15.5) % Plt Count 718 H (150-450) k/uL Neutrophils # 13.7 H (1.3-7.7) k/uL ABG pH (7.35-7.45) ABG pO2 (83-108) mmHg ABG O2 Saturation (94-97) % Sodium 133 L (137-145) mmol/L Carbon Dioxide 20 L (22-30) mmol/L BUN 20 H (7-17) mg/dL Glucose 106 H (74-99) mg/dL POC Glucose (mg/dL) 134 H (75-99) mg/dL Calcium 8.3 L (8.4-10.2) mg/dL 02/18/18 Range/Units 12:08 WBC (3.8-10.6) k/uL Hgb (11.4-16.0) gm/dL MCHC (31.0-37.0) g/dL RDW (11.5-15.5) % Plt Count (150-450) k/uL Neutrophils # (1.3-7.7) k/uL ABG pH 7.30 L (7.35-7.45) ABG pO2 153 H (83-108) mmHg ABG O2 Saturation 99.0 H (94-97) % Sodium (137-145) mmol/L Carbon Dioxide (22-30) mmol/L BUN (7-17) mg/dL Glucose (74-99) mg/dL POC Glucose (mg/dL) (75-99) mg/dL Calcium (8.4-10.2) mg/dL Microbiology - Last 24 Hours (Table) 02/16/18 15:10 Gram Stain - Final Sputum Sputum Culture - Final Beta Hemolytic Strep Group C 02/15/18 11:00 Blood Culture - Preliminary Blood No Growth after 48 hours 02/16/18 12:45 Gram Stain - Preliminary Pleural Fluid Body Fluid Culture - Preliminary Assessment and Plan Assessment: Impression: 1 collapsed left lung secondary to mucous plugging and impending respiratory failure. Hence the patient was transferred to the ICU, immediate bronchoscopy was done, patient had to be intubated, and considering the findings on the chest x-ray of pneumothorax post bronchoscopy and lavage, patient could not be extubated, left-sided chest tube was placed, and her previous pigtail catheter was kept in place and both were connected to Pleur-evac. 1 subacute loculated left pleural effusion, complicated in nature, parapneumonic. May eventually require decortication. Cultures are pending on the pleural effusion, but LDH protein were noted to be elevated, glucose was low at 32. 2 recent left lower lobe pneumonia, treated at [facility], however the patient developed what seems to be a complicated left pleural effusion. 3 recent CVA and left-sided hemiparesis, patient is maintained on aspirin and Plavix. 4 left sided hydropneumothorax, [address] in [address] and both are connected to Pleur-evac's. 4 multiple comorbidities including recent septic shock, opioid intoxication, recent respiratory failure requiring intubation and mechanical ventilation, history of depression, history of underlying COPD, tobacco dependence syndrome, severe protein calorie malnutrition benign essential hypertension recent right MCA CVA with residual left-sided weakness. Recommendation: Patient was transferred to the ICU, and multiple procedures were done including bronchoscopy, mucous plugging extraction and suctioning, left-sided chest tube placement, left internal jugular central line placed, left brachial arterial line placed, patient will be kept on mechanical ventilation, thoracic surgery is aware of her condition, we'll continue antibiotics for her parapneumonic effusion, patient is critically ill. We'll follow closely. Critical care time is 45 minutes not including the time spent on procedures done today. Time with Patient: Greater than 30
--- NOTE | 2018-02-18 13:13 | P.PN ---
Subjective Progress Note Date: 02/18/18 Principal diagnosis: Left-sided loculated pleural effusion. 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 POD #2 ultrasound guided pigtail catheter insertion by interventional radiology. The patient currently laying in bed in the intensive care unit. She did have alteplase instilled's into her left sided pigtail catheter yesterday with return of a significant amount of serous fluid. This morning's x-ray demonstrated almost complete whiteout of her left lung which was felt to be secondary to mucous plugs. She was brought to the intensive care unit by Dr. Eddy, intubated, bronchoscopy completed by Dr. Eddy with removal of significant amount of mucous plugs in the left mainstem bronchus. Subsequently , the patient was desaturating, chest x-ray performed demonstrated apical pneumothorax despite pigtail catheter chest tube connected to continuous wall suction, and decision was made to place a left-sided thoravent. Repeat chest x- ray demonstrates continued apical pneumothorax as well as moderate to large left pleural effusion. There continues to be serous drainage with tissue present out of the pigtail catheter as well as the thoravent and both pleura vacs are connected to continuous wall suction. Dr. Eddy would like the patient go to surgery for decortication, however as previously documented and discussed the patient is at extremely high risk of significant bleeding as she has been on Plavix which cannot be stopped due to recent stroke and carotid stenting. The patient remains sedated on mechanical ventilation and Dr. Eddy is currently discussing transferring the patient to [facility] with the patient' s . Objective - Vital Signs Vital signs: Vital Signs Temp 98.0 F 02/18/18 07:44 Pulse 75 02/18/18 08:30 Resp 20 02/18/18 09:30 BP 94/52 02/18/18 08:30 Pulse Ox 89 L 02/18/18 08:30 Intake & Output 02/17/18 02/18/18 02/18/18 18:59 06:59 18:59 Intake Total 690 110 Output Total 233 69 9968 Balance -130 640 -890 Intake: IV 50 Intake, IV Titration 450 Amount Levofloxacin 750Mg-D5w 400 Pmx 750 mg In Dextrose/ Water 1 150ml.bag @ 100 mls/hr IVPB Q24H HARIKA Rx#: [id number] Piperacillin-Tazobactam 3 50 .375 gm In Dextrose/Water 1 50ml.bag @ 12.5 mls/hr IVPB Q8HR HARIKA Rx#: [id number] Oral 240 60 Output: Drainage 363 23 1789 Left Back 152 99 6328 Other: Voiding Method Toilet Toilet Toilet Diaper # Voids 1 - Constitutional Constitutional Comment(s): Sedated on mechanical ventilation. - Respiratory Details: Lungs sounds diminished bilaterally, left greater than right. Respirations even , nonlabored on mechanical ventilation. Current ventilator settings assist control mode, FiO2 70%, tidal volume 350, respiratory rate 20, PEEP of 5. 8.0 ET tube present, 24 at the lip. Left sided thoravent and pigtail catheter present, connected to continuous wall suction, positive air leaks in both, significant output in both tubes. - Cardiovascular Details: S1, S2 present. Regular rate and rhythm, sinus rhythm on telemetry. Palpable peripheral pulses bilaterally. No edema present. No calf pain or tenderness noted. SCDs present. - Gastrointestinal Gastrointestinal Comment(s): Abdomen soft, nontender, nondistended. Active bowel sounds 4 quadrants. OG tube present to low intermittent suction. - Genitourinary Genitourinary Comment(s): Cowan present draining clear, yellow urine. - Neurologic Neurologic Comment(s): Sedated with propofol mechanical ventilation. - Allied health notes Allied health notes reviewed: nursing - Labs CBC & Chem 7: 02/18/18 07:00 02/18/18 07:00 Labs: Abnormal Lab Results - Last 24 Hours (Table) 02/18/18 02/18/18 02/18/18 Range/Units 07:00 07:00 09:45 WBC 16.3 H (3.8-10.6) k/uL Hgb 11.3 L (11.4-16.0) gm/dL MCHC 30.4 L (31.0-37.0) g/dL RDW 16.4 H (11.5-15.5) % Plt Count 718 H (150-450) k/uL Neutrophils # 13.7 H (1.3-7.7) k/uL ABG pH (7.35-7.45) ABG pO2 (83-108) mmHg ABG O2 Saturation (94-97) % Sodium 133 L (137-145) mmol/L Carbon Dioxide 20 L (22-30) mmol/L BUN 20 H (7-17) mg/dL Glucose 106 H (74-99) mg/dL POC Glucose (mg/dL) 134 H (75-99) mg/dL Calcium 8.3 L (8.4-10.2) mg/dL 02/18/18 Range/Units 12:08 WBC (3.8-10.6) k/uL Hgb (11.4-16.0) gm/dL MCHC (31.0-37.0) g/dL RDW (11.5-15.5) % Plt Count (150-450) k/uL Neutrophils # (1.3-7.7) k/uL ABG pH 7.30 L (7.35-7.45) ABG pO2 153 H (83-108) mmHg ABG O2 Saturation 99.0 H (94-97) % Sodium (137-145) mmol/L Carbon Dioxide (22-30) mmol/L BUN (7-17) mg/dL Glucose (74-99) mg/dL POC Glucose (mg/dL) (75-99) mg/dL Calcium (8.4-10.2) mg/dL Microbiology - Last 24 Hours (Table) 02/16/18 15:10 Gram Stain - Final Sputum Sputum Culture - Final Beta Hemolytic Strep Group C 02/15/18 11:00 Blood Culture - Preliminary Blood No Growth after 48 hours 02/16/18 12:45 Gram Stain - Preliminary Pleural Fluid Body Fluid Culture - Preliminary - Imaging and Cardiology Chest x-ray: report reviewed, image reviewed Assessment and Plan (1) Hypertension Current Visit: Yes Status: Chronic Code(s): I10 - ESSENTIAL (PRIMARY) HYPERTENSION SNOMED Code(s): 66944477 (2) Hyperlipidemia Current Visit: Yes Status: Chronic Code(s): E78.5 - HYPERLIPIDEMIA, UNSPECIFIED SNOMED Code(s): 57615928 (3) Irritable bowel syndrome Current Visit: Yes Status: Chronic Code(s): K58.9 - IRRITABLE BOWEL SYNDROME WITHOUT DIARRHEA SNOMED Code(s): 81265716 (4) Chronic low back pain Current Visit: Yes Status: Chronic Code(s): M54.5 - LOW BACK PAIN; G89.29 - OTHER CHRONIC PAIN SNOMED Code(s): 485354209 (5) Tobacco abuse Current Visit: Yes Status: Chronic Code(s): Z72.0 - TOBACCO USE SNOMED Code(s): 557760728 (6) History of septic shock Current Visit: No Status: Resolved Code(s): Z86.19 - PERSONAL HISTORY OF OTHER INFECTIOUS AND PARASITIC DISEASES SNOMED Code(s): 637489428 (7) History of respiratory failure Current Visit: No Status: Resolved Code(s): Z87.09 - PERSONAL HISTORY OF OTHER DISEASES OF THE RESPIRATORY SYSTEM SNOMED Code(s): 363126340 (8) Depression Current Visit: Yes Status: Chronic Code(s): F32.9 - MAJOR DEPRESSIVE DISORDER, SINGLE EPISODE, UNSPECIFIED SNOMED Code(s): 65518755 (9) History of stroke with residual deficit Current Visit: Yes Status: Chronic Code(s): I69.30 - UNSPECIFIED SEQUELAE OF CEREBRAL INFARCTION SNOMED Code(s): 658119148 (10) Fall Current Visit: Yes Status: Acute Code(s): W19.XXXA - UNSPECIFIED FALL, INITIAL ENCOUNTER SNOMED Code(s): 3344183 (11) Anemia Current Visit: Yes Status: Chronic Code(s): D64.9 - ANEMIA, UNSPECIFIED SNOMED Code(s): 272769791 (12) Pneumonia Current Visit: Yes Status: Acute Code(s): J18.9 - PNEUMONIA, UNSPECIFIED ORGANISM SNOMED Code(s): 987096723 (13) Hx of opioid abuse Current Visit: Yes Status: Chronic Code(s): Z87.898 - PERSONAL HISTORY OF OTHER SPECIFIED CONDITIONS SNOMED Code(s): 717536417 (14) COPD (chronic obstructive pulmonary disease) Current Visit: Yes Status: Chronic Code(s): J44.9 - CHRONIC OBSTRUCTIVE PULMONARY DISEASE, UNSPECIFIED SNOMED Code(s): 08119073 (15) Loculated pleural effusion Current Visit: Yes Status: Acute Code(s): J90 - PLEURAL EFFUSION, NOT ELSEWHERE CLASSIFIED SNOMED Code(s): 489497490 Plan: 1. No surgical intervention at this time as patient has been maintained on Plavix and is very high risk for significant bleeding with decortication. 2. Continue pigtail catheter and thoravent to continuous wall suction. Monitor drainage. 3. Ventilator management per Dr. Eddy. 4. Continue IV antibiotics per Dr. Domingo/Dr. Eddy. 5. Medical management per primary, pulmonology. 6. Transfer process in place to [facility] per Dr. Eddy. Time with Patient: Greater than 30
--- NOTE | 2018-02-18 13:56 | PCN ---
PROCEDURE NOTE PROCEDURE: Bronchoscopy, bronchoalveolar lavage of the left lung, and the mucus plug suctioning from the left mainstem bronchus. PREOPERATIVE DIAGNOSIS: Complete left lung collapse consistent with mucus plugging. POSTOPERATIVE DIAGNOSIS: Complete left lung collapse consistent with mucus plugging. ANESTHESIA USED: Patient was intubated by FLIP, and she was given IV conscious sedation. PROCEDURE DESCRIPTION: Patient was brought up to the ICU with complete collapse of the left lung, and required immediate bronchoscopy. Anesthesia were notified, patient apparently had drank some orange juice earlier today, and it was advised to intubated the patient since she drank some orange juice earlier today, and she was intubated by FLIP. Patient was placed on mechanical ventilation, and she was given the propofol as per DOCUMENT DESIGN SPECIALIST. In the meantime, we monitored her O2 saturation, monitored pulse oximetry, blood pressure was intermittently monitored, and cardiac rhythm was continuously monitored. After adequate sedation, the bronchoscope was advanced through the adapter of the endotracheal tube, and the patient was already on mechanical ventilation. Advanced down to the area of the distal end of the tracheal tube, there was significant amount of mucus plugs noted in the distal end of the endotracheal tube and in the trachea extended although extending all the way down to the left mainstem bronchus. These mucus plugs were suctioned, and cleared completely. The left lung was all lavaged including left lower lobe lingula and left upper lobe. Examination of the right side was also done, there was hardly any secretions on the right side. The procedure was well tolerated, no evidence of any immediate complications. However, chest x-ray postoperatively showed significant expansion of the left lung, however, it was suggestive of left-sided apical pneumothorax. Considering the patient was on mechanical ventilation, and considering the patient was desaturating shortly after, followup chest x-ray showed again left sided pneumothorax, and we decided to go ahead and proceed with thoravent placement. Please refer to separate procedures. MMODL / IJN: [id number] /
--- NOTE | 2018-02-18 14:05 | PCN ---
PROCEDURE NOTE PROCEDURE: Placement of the left internal jugular triple-lumen catheter. PREOPERATIVE DIAGNOSIS: Respiratory failure and hypotension. POSTOPERATIVE DIAGNOSIS: Respiratory failure and hypotension. ANESTHESIA USED: 2 mL of 1% lidocaine. PROCEDURE DESCRIPTION: Patient was placed in a supine position, the area of the left cervical region was prepared in a sterile fashion and drapes were applied. Using the posterior approach, the area was anesthetized with lidocaine, and the left internal jugular vein was easily cannulated, it was one attempt, a guidewire was placed, and the area around the guidewire was dilated using a dilator. Then a triple-lumen catheter was inserted over the guidewire, and the guidewire was removed. Good blood flow was noted in the 3 different ports of the triple-lumen catheter, and the procedure was well tolerated, no evidence of any immediate complication. Line was secured using 3.0 silk sutures. Chest x-ray showed adequate placement of the triple-lumen catheter at, and there was evidence of an old pneumothorax which was noted even before the central line placement. MMODL / IJN: [id number] /
--- NOTE | 2018-02-18 14:05 | PCN ---
PROCEDURE NOTE Operative report is placement of a left-sided Thoravent/chest tube. PREOPERATIVE DIAGNOSIS: Left-sided pneumothorax, patient is on mechanical ventilation. POSTOPERATIVE DIAGNOSIS: Left-sided pneumothorax, patient is on mechanical ventilation. PROCEDURE: Patient had to have this procedure done on emergency basis since she had left-sided pneumothorax and she was desaturating down in spite of being on 100% FiO2. The patient was placed in a upright position, and the area of the left chest below the left clavicle was prepared in a sterile fashion and drapes were applied. At the area at the third intercostal space and midclavicular line was anesthetized using 10 mL of lidocaine, and the needle was inserted all the way down to the area of the pneumothorax. Then a small incision was made with a size 11 scalpel and Thoravent was used with the trocar. Inserted at the same site which correlated to the third intercostal space and midclavicular line. Advanced directly into the pleural space. As soon as the pleural space was entered, the catheter of the Thoravent was advanced over the tip of the trocar and the trocar was pulled out of the pleural space. The Thoravent was connected to a Pleur-Evac, and there was no evidence of any immediate complications. The chest x-ray postoperatively showed adequate placement, but there was still persistent left-sided pneumothorax and the Thoravent was kept in place, connected to Pleur-Evac. Again, no evidence of any immediate complications. MMODL / IJN: [id number] /
--- NOTE | 2018-02-18 14:07 | CDI ---
Last Revision, May 2017 Documentation Clarification Form Date: 02/18/2018 1:52:00 PM From: Dottie CordobaJUANCARLOS, CCDS Admit Date: 02/15/2018 12:40:00 PM Patient Name: Christiane Felipe Visit Number: [id number] Discharge Date: ATTENTION: The Clinical Documentation Specialists (CDI) and [facility] Coding Staff appreciate your assistance in clarifying documentation. Please respond to the clarification below the line at the bottom and electronically sign. The CDI & [facility] Coding staff will review the response and follow-up if needed. Please note: Queries are made part of the Legal Health Record. If you have any questions, please contact the author of this message via ITS. Hilda Muhammad MD: 57 yo female presented to the ER with cough & left side rib pain. Recent admission to [facility] pneumonia & respiratory failure requiring mechanical ventilation. Per the 02/18 pulmonary progress note: "Postoperative chest x-ray showed good sized left-sided pneumothorax, and the patient is now on mechanical ventilation , continued to desaturate in spite of being on the percent FiO2." History/Risk Factors: COPD, chronic smoker. Clinical indicators: Probable parapneumonic effusion status post bronchoscopy with suction of mucus plugs & lavage. Patient has left CT & left side pigtail catheter for drainage of pleural effusion. Vital signs 02/18 prior to intubatioin: R 20-40 (agonal, shallow), BP 89/59, 94/ 52; PO 89 2Lnc. Treatment: Albuterol INH, IV Levaquin, IV Zosyn, IV Ms, IV Toradol. O2 2Lnc, Bronchoscopy & intubated on vent. In your professional opinion, can you please clarify if these findings signify one of the following conditions? Acute Respiratory Failure Chronic Respiratory Failure Acute on Chronic Respiratory Failure o Specificity: With hypercapnia? With hypoxia? Other Diagnosis, please specify Unable to determine Please clarify if this postoperative diagnosis is: An expected post-procedural or post-surgical condition; Integral to the procedure; Inherent to the procedure; An unexpected post-procedural or post-surgical condition related to surgical care; Other, please specify Unable to determine MTDD
--- NOTE | 2018-02-18 14:14 | CDI ---
Last Revision, May 2017 Documentation Clarification Form Date: 02/18/2018 2:10:19 PM From: Dottie CordobaJUANCARLOS, CCDS Admit Date: 02/15/2018 12:40:00 PM Patient Name: Christiane Felipe Visit Number: [id number] Discharge Date: ATTENTION: The Clinical Documentation Specialists (CDI) and [facility] Coding Staff appreciate your assistance in clarifying documentation. Please respond to the clarification below the line at the bottom and electronically sign. The CDI & [facility] Coding staff will review the response and follow-up if needed. Please note: Queries are made part of the Legal Health Record. If you have any questions, please contact the author of this message via ITS. Hilda Melgar MD: 57 yo female presented to the ER with cough & left side rib pain. Recent admission to [facility] pneumonia & respiratory failure requiring mechanical ventilation. Diagnosed with pneumothorax post bronchoscopy. Per the 02/18 pulmonary progress note: "Postoperative chest x-ray showed good sized left-sided pneumothorax, and the patient is now on mechanical ventilation , continued to desaturate in spite of being on the percent FiO2." History/Risk Factors: COPD, chronic smoker. Clinical indicators: Probable parapneumonic effusion status post bronchoscopy with suction of mucus plugs & lavage. Patient has left CT & left side pigtail catheter for drainage of pleural effusion. Vital signs 02/18 prior to intubatioin: R 20-40 (agonal, shallow), BP 89/59, 94/ 52; PO 89 2Lnc. Treatment: Albuterol INH, IV Levaquin, IV Zosyn, IV Ms, IV Toradol. O2 2Lnc, Bronchoscopy & intubated on vent. Please clarify if this postoperative diagnosis of pneumothorax is: An expected post-procedural or post-surgical condition; Integral to the procedure; Inherent to the procedure; An unexpected post-procedural or post-surgical condition related to surgical care; Other, please specify Unable to determine MTDD
--- NOTE | 2018-02-18 14:23 | PCN ---
PROCEDURE NOTE The operative report is placement of the left brachial arterial line. PREOPERATIVE DIAGNOSIS: Respiratory failure, hypotension, needed hemodynamic monitoring. POSTOPERATIVE DIAGNOSIS: Respiratory failure, hypotension, needed hemodynamic monitoring. ANESTHESIA USED: None deployed. PROCEDURE: The left brachial region was prepared in a sterile fashion. Drapes were applied and the patient was in supine position. The left brachial artery was palpated, cannulated, and a guidewire was placed. A Cook's catheter was placed over the guidewire, and the guidewire was removed. Good blood flow was noted. Line was secured using 3.0 silk sutures. MMODL / IJN: [id number] /
--- NOTE | 2018-02-18 14:32 | PCN ---
PROCEDURE NOTE ADDENDUM: Addendum on the Thoravent procedure placement. The procedure was done by Dr. Eddy and assisted by Dr. Cao as well as Dr. Moore. MMJOSE RAMONL / ANTHONYN: [id number] /
[2018-02-18] MEDS: CLOPIDOGREL 75 MG TAB PO SCH (14:40)
[2018-02-18] MEDS: LORATADINE 10 MG TAB PO SCH (14:40)
[2018-02-18] MEDS: NICOTINE 21MG/24HR PATCH TRANSDERM SCH (14:40)
[2018-02-18] MEDS: ASPIRIN 81 MG PO SCH (14:40)
[2018-02-18 15:47] VITALS: BP 84/54; PULSE 75; RESP 20; TEMP 97.6
[2018-02-18 18:24] LABS: Appearance,BF Cloudy; Nucleated Cells, Body Fluid 460 /uL; RBC, Body Fluid 80 /uL
[2018-02-18 18:25] LABS: Mononuclear WBC,Body Fluid 15 %; Polynuclear WBC,Body Fluid 85 %; Total Cells Counted,Body Fluid 100
[2018-02-18] MEDS ORDERED: CHLORHEXIDINE GLUCONATE 15 ML CUP MUCOUS MEM SCH (21:00)
--- NOTE | 2018-02-19 22:27 | DS ---
DISCHARGE SUMMARY DATE OF ADMISSION: 02/15/2018 DATE OF TRANSFER: 02/18/2018 FINAL DIAGNOSES: 1. Left-sided parapneumonic effusions with a chest tube in place with cultures growing beta-hemolytic Streptococcus group C. 2. Chronic obstructive pulmonary disease in a current smoker. 3. Chronic nicotine dependence. Patient an active cigarette smoker. 4. Gastroesophageal reflux disease. 5. Essential hypertension. 6. Hyperlipidemia. 7. Irritable bowel syndrome. 8. Peripheral neuropathy, idiopathic. 9. Chronic low back pain. 10.Normocytic anemia, multifactorial, including nutritional. 11.Reactive thrombocytosis. PROCEDURES: 1. Left bronchoscopy with removal of mucous plugs from the left side. 2. Chest tube placement on the left side. HOSPITAL COURSE: This is a patient who follows with Dr. Yang, was just discharged from [facility] following a diagnosis of pneumonia. The patient has been on the ventilator for 2 days. The patient was discharged on February 10. The patient continues to become worse; shortness of breath, cough, yellow sputum production, presented here. The patient's CT scan showed left-sided fluid loculation and hence chest tube was placed. The patient felt a little bit better. Subsequently on the day of transfer, patient became more and more short of breath. Chest x-ray showed subsequent white out of the left side. Bronchoscopy done. Large mucous plugs were removed. The patient was found to have a pneumothorax. The patient was subsequently intubated. Cardiothoracic Surgery was consulted for decortication, but they felt the patient was a high risk. Initially patient was transferred to [facility]. This was coordinated by Dr. Eddy and the ICU team and the patient was transferred from the medical floor. Last set of vitals: Temperature 97.6, pulse 95, respirations 20, blood pressure 84/54, pulse ox 98% on the ventilator, left-sided chest tube. DISPOSITION: [facility] ICU. MMODL / IJN: [id number] /
--- NOTE | 2018-03-08 16:22 | P.PN ---
Progress Note - Text Progress Note Date: 03/08/18 This is a statement verifying the patient's pulmonary issues during that last admission. Patient had acute on chronic hypoxic respiratory failure multifactorial secondary to loculated left-sided pleural effusion, underlying COPD, and recent left lower lobe pneumonia with parapneumonic effusion. As far as the pneumothorax is concerned patient had loculated pneumothorax secondary to failure of the lung to expand post bronchoscopy because of significant amount of loculation related to loculated pleural effusion. Patient did not have iatrogenic pneumothorax . Her pneumothorax again was a loculated pocket of air not related to any procedure it is mostly related to failure of the lung to expand after bronchoscopy and extraction of mucous plugs leading to the collapse of the lung in the first place. In addition to all of this the patient had to begin with loculated hydropneumothorax, again was not expected and was not iatrogenic. In summary, we have a lady who presented with left sided parapneumonic effusion, loculated, failed to respond to pigtail catheter placement, went on to develop complete collapse of the left lung secondary to mucous plugs, and after bronchoscopy the lung failed to fully expand creating what looked like a trapped lung with loculated hydropneumothorax.
== END 2018-02-18 16:45 | disposition short-term general hospital (02) | DRG 166 ==
LOC: EC 09:39 → 5MS5E 12:40 → 6ICU 02-18 10:03
PROVIDERS: ADMIT Hospitalist; ATTEND Hospitalist
PROC: 03HY32Z Insertion of Monitoring Device into Upper Artery, Percutaneous Approach (ICD-10-PCS; principal; 2018-02-18 09:35)
PROC: 0BH18EZ Insertion of Endotracheal Airway into Trachea, Via Natural or Artificial Opening Endoscopic (ICD-10-PCS; principal; 2018-02-18 09:35)
PROC: 4A133J1 Monitoring of Arterial Pulse, Peripheral, Percutaneous Approach (ICD-10-PCS; principal; 2018-02-18 09:35)
PROC: 0BC78ZZ Extirpation of Matter from Left Main Bronchus, Via Natural or Artificial Opening Endoscopic (ICD-10-PCS; principal; 2018-02-18 09:35)
PROC: 4A133B1 Monitoring of Arterial Pressure, Peripheral, Percutaneous Approach (ICD-10-PCS; principal; 2018-02-18 09:35)
PROC: 0B9G8ZX Drainage of Left Upper Lung Lobe, Via Natural or Artificial Opening Endoscopic, Diagnostic (ICD-10-PCS; principal; 2018-02-18 09:35)
PROC: 0W9B30Z Drainage of Left Pleural Cavity with Drainage Device, Percutaneous Approach (ICD-10-PCS; principal; 2018-02-18 09:35)
PROC: 0B9J8ZX Drainage of Left Lower Lung Lobe, Via Natural or Artificial Opening Endoscopic, Diagnostic (ICD-10-PCS; principal; 2018-02-18 09:35)
PROC: 5A1935Z Respiratory Ventilation, Less than 24 Consecutive Hours (ICD-10-PCS; principal; 2018-02-18 09:35)
PROC: 02H633Z Insertion of Infusion Device into Right Atrium, Percutaneous Approach (ICD-10-PCS; principal; 2018-02-18 09:35)
PROC: 0B9H8ZX Drainage of Lung Lingula, Via Natural or Artificial Opening Endoscopic, Diagnostic (ICD-10-PCS; principal; 2018-02-18 09:35)
DX: J90 Pleural effusion, not elsewhere classified (principal); J96.21 Acute and chronic respiratory failure with hypoxia; I69.354 Hemiplegia and hemiparesis following cerebral infarction affecting left non-dominant side; J44.0 Chronic obstructive pulmonary disease with (acute) lower respiratory infection; J93.9 Pneumothorax, unspecified; T17.890A Other foreign object in other parts of respiratory tract causing asphyxiation, initial encounter; T17.590A Other foreign object in bronchus causing asphyxiation, initial encounter; J94.8 Other specified pleural conditions; D64.9 Anemia, unspecified; E78.5 Hyperlipidemia, unspecified; F17.210 Nicotine dependence, cigarettes, uncomplicated; F32.9 Major depressive disorder, single episode, unspecified; F43.10 Post-traumatic stress disorder, unspecified; G60.9 Hereditary and idiopathic neuropathy, unspecified; G89.29 Other chronic pain; I10 Essential (primary) hypertension; K21.9 Gastro-esophageal reflux disease without esophagitis; K58.9 Irritable bowel syndrome, unspecified; W18.30XA Fall on same level, unspecified, initial encounter; Y92.009 Unspecified place in unspecified non-institutional (private) residence as the place of occurrence of the external cause; Z79.02 Long term (current) use of antithrombotics/antiplatelets; Z79.82 Long term (current) use of aspirin; Z79.899 Other long term (current) drug therapy; Z80.1 Family history of malignant neoplasm of trachea, bronchus and lung; Z82.3 Family history of stroke; Z87.01 Personal history of pneumonia (recurrent); Z90.710 Acquired absence of both cervix and uterus; Z90.49 Acquired absence of other specified parts of digestive tract; Z79.891 Long term (current) use of opiate analgesic; Z88.2 Allergy status to sulfonamides; Z88.8 Allergy status to other drugs, medicaments and biological substances; M54.5 Low back pain; R79.89 Other specified abnormal findings of blood chemistry; B95.4 Other streptococcus as the cause of diseases classified elsewhere
CPT/HCPCS: 31624; 32551; 36415; 71045; 71046; 71275; 76604; 76942; 80048; 80053; 82150; 82805; 82945; 83605; 83615; 84157; 84484; 85025; 85610; 85730; 87040; 87070; 87102; 87116; 87205; 87206; 87252; 87496; 87498; 87502; 87529; 87634; 87798; 88108; 88305; 89050; 93005; 94002; 94640; 94760; 96365; 96366; 96367; 99285

== ENCOUNTER → 2018-05-25 | Outpatient (CLI) | payer OTHER ==
--- NOTE | 2018-05-25 22:59 | CT ---
EXAMINATION TYPE: CT chest w con DATE OF EXAM: 05/25/2018 COMPARISON: Radiographs 05/17/2018 HISTORY: 57-year-old female follow-up left lower lobe pneumonia TECHNIQUE: Contiguous axial scanning of the chest after the administration of 100 mL of Isovue 300. Coronal/sagittal reconstructions performed. CT DLP: 370mGycm. Automatic exposure control utilized for a dose reduction. FINDINGS: Heart normal size without pericardial effusion. Ascending aorta is aneurysmal at 4.5 cm. Conventional arch vessel branching anatomy with mild atheros clerotic calcifications. The descending thoracic aorta is mildly tortuous. A couple prominent but nonenlarged mediastinal lymph nodes measure up to 7 mm. No thoracic lymphadeno tamanna by CT size criteria. Evaluation of the lungs shows diffuse bronchial wall thickening and minimal centrilobular emphysema. Biapical pleural parenchymal scarring is present with a couple scattered 3 to 4 mm pulmonary nodules, such as in the left upper lobe, axial image 16 and 13. There is focal bandlike area of consolidation and some mild patchy adjacent groundglass in the left lower lobe extending from the hilum peripheral ly to the pleural surface. No other consolidation or pleural effusion. Visualized upper abdomen shows cholecystectomy clips. Severe degenerative changes at L2-L3 with grade 1 retrolisthesis and facet arthropathy. Mild to moder ate narrowing of the spinal canal at this level. IMPRESSION: 1. COPD with very mild emphysema. There are a couple 3 to 4 mm pulmonary nodules in the left upper lo be. These could be reassessed at a one-year follow-up. 2. Bandlike area of consolidation and volume loss in the left lower lobe could represent residual pne umonia or developing scar. Three-month follow-up can assess for any evolving changes or stability. 3. Aneurysmal ascending aorta at 4.5 cm. 4. Severe focal degenerative changes at L2-L3 with grade 1 retrolisthesis and result in mlsm-it-stket ate spinal canal stenosis.
== END | disposition home or self-care (01) ==
LOC: RADCTMAIN 15:44
PROVIDERS: ATTEND Internal Medicine Critical Care Medicine
DX: J43.9 Emphysema, unspecified (principal); R91.8 Other nonspecific abnormal finding of lung field; I71.2 Thoracic aortic aneurysm, without rupture
CPT/HCPCS: 71260; Q9967